=== PATIENT | male | born 1965 | race Caucasian/White ===

== ENCOUNTER 2017-08-02 06:34 | Day surgery (SDC) | payer BC, OTHER ==
[2017-08-02] MEDS ORDERED: PROPOFOL 200 MG/20 ML VIAL As Ordered (07:00)
[2017-08-02] MEDS: NS 1,000 ML IV (07:15)
[2017-08-02 07:23] LABS: BEDSIDE GLUCOSE 249 MG/DL (70-105)
== END 2017-08-02 08:28 | disposition home or self-care (01) ==
LOC: M OPP 06:34
DX: Z12.11 Encounter for screening for malignant neoplasm of colon (principal); D12.0 Benign neoplasm of cecum; K64.8 Other hemorrhoids; I10 Essential (primary) hypertension; E78.00 Pure hypercholesterolemia, unspecified; E10.9 Type 1 diabetes mellitus without complications; K21.9 Gastro-esophageal reflux disease without esophagitis; G62.9 Polyneuropathy, unspecified; G25.81 Restless legs syndrome; M19.90 Unspecified osteoarthritis, unspecified site; M54.9 Dorsalgia, unspecified; Z98.1 Arthrodesis status; Z87.891 Personal history of nicotine dependence; Z79.82 Long term (current) use of aspirin; Z79.899 Other long term (current) drug therapy
CPT/HCPCS: 45385

== ENCOUNTER 2018-06-23 17:37 | Emergency (ER) | payer BC, OTHER ==
[~2018-06-23] VITALS: Ht 177.8 cm; Wt 93.2 kg
[~2018-06-23 17:37] MED LIST: ASPI81TA85 PO; BENI20TA11 OR; BIOFREEZE; BYETTA PO; BYETTA SQ; BYSTOLIC PO; CARI350T PO; CITA40TA4 PO; CRES20TA OR; CYCL10TA PO; FLAG500T PO; INSULANT SC; LEVA750T PO; LEVAMIR SQ; LYRI150C OR; MAGN400T5 PO; NOVOINJ3; OMEP20TA7 OR; OXYC15TA66 PO; PREG50CA PO; ROPI1TAB PO; TRAM50TA2 OR; TRES1INJ SC; VICO5TAB PO; ZANA4CAP OR; ZANTTAB PO
[2018-06-23 17:38] VITALS: BP 161/94
[2018-06-23] MEDS ORDERED: VALI5TAB PO (18:16)
[2018-06-23] MEDS ORDERED: diazePAM 5 MG TAB PO ONE ×2 (18:30)
--- NOTE | 2018-06-24 08:36 | REP ---
Clinical: Trauma. Technique: Internal rotation, external rotation, and Y view of the left shoulder. Findings: Mild age-related degenerative changes at the acromioclavicular joint include subtle spurring and joint space narrowing. Glenohumeral joint appears intact and normal for age. No obvious acute fracture or dislocation. Subacromial space is normal. Surrounding soft tissues are unremarkable. Impression: Mild age-related degenerative changes. No acute fracture or dislocation appreciated. Electronically Signed by Juaquin Yepez MD 06/24/2018 08:27 A
== END 2018-06-23 18:27 | disposition home or self-care (01) ==
LOC: M ED 17:37
DX: M25.512 Pain in left shoulder (principal); E11.9 Type 2 diabetes mellitus without complications; I10 Essential (primary) hypertension; E78.5 Hyperlipidemia, unspecified; K21.9 Gastro-esophageal reflux disease without esophagitis; Z79.899 Other long term (current) drug therapy; Z79.4 Long term (current) use of insulin; Z79.82 Long term (current) use of aspirin; Z87.891 Personal history of nicotine dependence

== ENCOUNTER → 2018-11-07 | Outpatient (REF) | payer BC, OTHER ==
[~2018-11-07] MED LIST changes: +VALI5TAB PO; +ZANT150T40 PO; -ZANTTAB PO
[2018-11-08 08:42] LABS: LDL DIRECT 120 mg/dL (0-99)
== END ==
LOC: M LAB REF 12:31
PROVIDERS: ATTEND Nurse Practitioner Adult Health
DX: E78.00 Pure hypercholesterolemia, unspecified (principal)

== ENCOUNTER → 2019-06-03 | Outpatient (REF) | payer OTHER ==
[2019-06-05 08:07] LABS: LDL DIRECT 178 mg/dL (0-99)
== END ==
LOC: M LAB REF 12:22
PROVIDERS: ATTEND Nurse Practitioner Adult Health
DX: E11.65 Type 2 diabetes mellitus with hyperglycemia (principal)

== ENCOUNTER → 2019-09-30 | Outpatient (CLI) | payer OTHER ==
[~2019-09-30] MED LIST changes: +CYCL-707 PO; -CYCL10TA PO; -NOVOINJ3; +NOVOINJ3 SC; +RANI15TA PO; -ROPI1TAB PO; +ROPI1TAB3 PO
== END ==
LOC: M LABSMTC 09:44
PROVIDERS: ATTEND Anesthesiology
DX: Z01.818 Encounter for other preprocedural examination (principal); Z11.59 Encounter for screening for other viral diseases
CPT/HCPCS: C9803; U0003

== ENCOUNTER 2019-10-03 06:04 | Day surgery (SDC) | payer BC, OTHER ==
[~2019-10-03] VITALS: Ht 177.8 cm; Wt 102.1 kg
[~2019-10-03 06:04] MED LIST changes: +LR 1,000 ML IV SCH
[2019-10-03] MEDS ORDERED: BUPIVACAINE HCL 0.5% 30 ML VIAL As Ordered ONE (07:11)
[2019-10-03] MEDS ORDERED: LIDOCAINE 2% MDV 20ML VIAL As Ordered ONE (07:11)
[2019-10-03] MEDS ORDERED: dexameTHASONE 4 MG/ML 1ML VIAL (J1100 PER 1MG) As Ordered ONE (07:11)
[2019-10-03] MEDS ORDERED: NEOSPORIN GU IRRIG 20 ML VIAL As Ordered ONE (07:12)
[2019-10-03] MEDS ORDERED: BACITRACIN PWD 50,000 UNITS VIAL As Ordered ONE (07:12)
[2019-10-03] MEDS ORDERED: fentaNYL 100 MCG/2 ML INJECTION (J3010) As Ordered ONE ×2 (07:24→08:27)
[2019-10-03] MEDS ORDERED: MIDAZOLAM INJ 2MG/2ML VIAL (J2250 PER 1MG) As Ordered ONE (07:24)
[2019-10-03] MEDS ORDERED: LIDOCAINE 2% 100MG/5ML SDV (FOR ANES.) As Ordered ONE (07:24)
[2019-10-03] MEDS ORDERED: propofoL 200 MG/20 ML VIAL As Ordered ONE ×3 (07:24→08:48)
[2019-10-03] MEDS: ceFAZolin SOD 2 GM in IV 1 EA IV SCH (07:39)
[2019-10-03] MEDS ORDERED: KETOROLAC 60 MG/2 ML VIAL As Ordered ONE (08:13)
[2019-10-03] MEDS ORDERED: METOCLOPRAMIDE INJ 10MG/2ML VIAL (J2765 PER 1) As Ordered ONE (08:13)
[2019-10-03] MEDS ORDERED: ONDANSETRON 4MG/2ML VIAL As Ordered ONE (08:13)
[2019-10-03] MEDS ORDERED: LACRILUBE (AKWA TEARS) OPHTH OINT 3.5 GM As Ordered ONE (08:58)
[2019-10-03 09:43] VITALS: BP 133/85
--- NOTE | 2019-10-03 10:27 | REP ---
RIGHT FOOT, THREE VIEWS: Three portable views right foot performed. There has been placement of a metallic plate and multiple metallic screws fusing the 1st metatarsophalangeal joint, with significant narrowing at that joint. The osseous structures are well aligned. There is an overlying cast. Electronically Signed by Felix Velázquez MD 10/06/2019 09:44 P
--- NOTE | 2019-10-08 11:58 | RO ---
DATE OF SURGERY: 10/03/2019 PREOPERATIVE DIAGNOSIS: Hallux limitus deformity, right foot. POSTOPERATIVE DIAGNOSIS: Hallux limitus deformity, right foot. PROCEDURE PERFORMED: SURGEON: Mick Monzon DPM EXTENSION FORESTER: None. ANESTHESIA: Local monitored anesthesia care (MAC). IRRIGATION: Dilute bacitracin, neomycin, and polymyxin B solution. HARDWARE UTILIZED: Arthrex MTP standard plate with locking and nonlocking screws, cancellous screws 3.0 x 40, 20 and 22, and locking 3.0 screws 16 x 18 x 18 x 22. HEMOSTASIS: Ankle pneumatic tourniquet at 250 mmHg, 67 minutes. DESCRIPTION OF PROCEDURE: Description of operation: On 10/03/2019, this 54-year-old male was taken from his hospital room to the operating room, placed on the operating table in supine position. Following the induction of intravenous (IV) sedation, local and regional anesthesia, the right lower extremity was prepped and draped in the usual aseptic manner. Attention was directed to the patient's right foot, and there was noted to be a hallux limitus deformity, and the following procedure was performed: FUSION 1ST METATARSOPHALANGEAL JOINT WITH PLATE AND SCREW FIXATION, RIGHT FOOT: Attention directed to the patient's right foot. An incision measuring approximately [address] over the 1st metatarsophalangeal joint medial to the extensor tendon. The incision was deepened through subcutaneous tissues and all coursing venous tributaries were identified, underscored, clamped, cut, ligated, and electrocoagulated as necessary. A linear capsulotomy was performed in the same plane as original skin incision and the capsule and periosteal structures then dissected free in one continuous layer, dorsally, medially, and laterally, thus creating a capsule and periosteal type envelope. Attention was directed to the articular cartilage of the proximal phalanx where the entire dorsal and central aspect of the articular cartilage was eroded. The cartilage for the sesamoids was the only remaining cartilage intact. Proximal phalanx had approximately 80% of the cartilage eroded, therefore, a cheilectomy could not be performed and it was elected to perform a fusion of the 1st metatarsophalangeal joint. Utilizing the appropriate reamers, a cup and cone reamer system was utilized to remove the cartilage and recontour the head of the 1st metatarsal. Utilizing a power saw, the medial eminence and the dorsal sparing of the 1st metatarsal and proximal phalanx were removed. Utilizing a rongeur, the rest of the remodeling was performed. Utilizing a 2 mm drill bit, the remaining surfaces were fenestrated to promote fusion. The wound was then flushed with copious amounts of dilute bacitracin, neomycin, and polymyxin B solution. Utilizing the cannulated wire, the phalanx was placed in the appropriate position with some dorsiflexion and the hallux was placed parallel to the weightbearing surface parallel to the 2nd toe and a wire was driven through the phalanx into the proximal phalanx. C-arm was utilized to assure adequate position. Then, a 3.0 x 40 mm compression screw was utilized for interfragmental compression. An Arthrex MTP standard plate was then contoured to the dorsal surface of the 1st metatarsal and the appropriate screws were then placed in the appropriate holes, 3.0 x 16, 18, 18, 22 locking screws and nonlocking 3.0 x 20 and 22 screws. The wound was again flushed with copious amounts of dilute bacitracin, neomycin, and polymyxin B solution. C-arm images were obtained to verify appropriate position, and the wound was closed with #2.0 Monocryl for the capsular layer. Subcutaneous layer was coapted and maintained utilizing #4-0 Monocryl in a simple interrupted-type fashion. Skin incision was coapted and maintained utilizing #4-0 Prolene in a simple interrupted-type fashion. Sterile dressing was applied consisting of Adaptic, 4 x 4's , Quincy, and Kerlix. Ankle pneumatic tourniquet was rapidly deflated, and instantaneous capillary filling time was noted in digits 1-5 of the patient's right foot. A fiberglass boot cast was then applied to the patient's right foot. Patient, having apparently tolerated the surgical procedure well, was taken from the operating room (OR) to the recovery room, further monitoring by the anesthesia department. Postoperative instructions will be given upon discharge. SAMEER
== END 2019-10-03 10:00 | disposition home or self-care (01) ==
LOC: M SDC 06:04
PROVIDERS: ATTEND Podiatrist
DX: M20.11 Hallux valgus (acquired), right foot (principal); E78.00 Pure hypercholesterolemia, unspecified; E10.9 Type 1 diabetes mellitus without complications; I10 Essential (primary) hypertension; Z79.4 Long term (current) use of insulin; K21.9 Gastro-esophageal reflux disease without esophagitis; Z79.82 Long term (current) use of aspirin; Z79.899 Other long term (current) drug therapy; Z85.47 Personal history of malignant neoplasm of testis
CPT/HCPCS: 28750; 73630; 88300; C1713; J0690; J1100; J1885; J2250; J2405; J2765; J3010

== ENCOUNTER → 2019-12-10 | Outpatient (REF) | payer OTHER ==
[~2019-12-10] MED LIST changes: -ASPI81TA85 PO; +ASPI81TA86 PO; -LR 1,000 ML IV SCH
[2020-01-25 08:21] LABS: TOTAL 25(OH) VITAMIN D 12.1 NG/ML (30.0-100.0)
== END ==
LOC: M LAB REF 12:53
PROVIDERS: ATTEND Registered Nurse
DX: N52.9 Male erectile dysfunction, unspecified (principal); R53.83 Other fatigue

== ENCOUNTER → 2020-01-19 | Outpatient (REF) | payer OTHER | LOC: M LAB REF 16:19 | PROVIDERS: ATTEND Nurse Practitioner Adult Health | DX: R68.82 Decreased libido (principal) ==

== ENCOUNTER 2020-03-16 07:16 | Emergency (ER) | payer BC, OTHER ==
[2020-03-16] MEDS ORDERED: NS 1,000 ML IV ONE ×2 (08:00→10:15)
[2020-03-16 08:14] LABS: BASO # 0.1 10^3/uL (0.0-0.2); BASO % 0.9 % (0.0-1.0); EOS # 0.2 10^3/uL (0.0-0.5); EOS % 2.2 % (0.0-3.0); LYMPH # 2.1 10^3/uL (1.5-5.0); LYMPH % 21.7 % (24.0-44.0); MEAN CORPUSCULAR VOLUME 88.3 fl (80.0-96.0); MONO % 10.6 % (0.0-5.0); NEUTROPHILS # 6.2 10^3/uL (1.5-8.5); NEUTROPHILS % 63.7 % (36.0-66.0); PLATELET COUNT, AUTOMATED 429 10^3/uL (150-450); RED BLOOD COUNT 5.66 10^6/uL (4.30-6.10); WHITE BLOOD COUNT 9.8 10^3/uL (4.0-10.0)
[2020-03-16] MEDS ORDERED: OXYC1TAB23 PO (08:17)
[2020-03-16] MEDS ORDERED: DULO1CAP5 PO (08:17)
[2020-03-16] MEDS ORDERED: OZEM2INJ SQ (08:17)
[2020-03-16] MEDS ORDERED: FAMO40TA3 PO (08:17)
[2020-03-16 08:59] LABS: ALBUMIN 3.9 GM/DL (3.2-5.2); ALT/SGPT 20 U/L (12-78); AMYLASE 91 U/L (25-115); BILIRUBIN,DIRECT 0.2 MG/DL (0.0-0.2); BILIRUBIN,TOTAL 0.9 MG/DL (0.2-1.0); CK-MB VALUE MASS < 1.0 NG/ML (<3.6); CPK CREATINE PHOSPHOKINASE 40 U/L (39-308); NT-PRO BNP 24 PG/ML (<125); TOTAL PROTEIN 7.6 GM/DL (6.4-8.2); TROPONIN I < 0.02 NG/ML (< 0.10)
[2020-03-16 09:18] LABS: MAGNESIUM LEVEL 2.1 MG/DL (1.8-2.4)
[2020-03-16] MEDS ORDERED: PERCOCET 5MG/325MG TAB PO ONE (10:15)
[2020-03-16] MEDS ORDERED: ISOVUE-370 76% 100ML VIAL As Ordered ONE (10:18)
--- NOTE | 2020-03-16 10:43 | REP ---
INDICATION: intractable nausea/vomiting. COMPARISON: 12/20/2010 TECHNIQUE: Axial contrast-enhanced images from the lung bases to the pubic symphysis using 100 cc Isovue 370 intravenous contrast material. Coronal and sagittal reformations obtained. This CT examination was performed using the following dose reduction techniques: Automated exposure control, adjustment of mA and/or kv according to the patient's size, and the use of iterative reconstruction technique. FINDINGS: Liver, spleen, pancreas, gallbladder, bilateral adrenal glands and kidneys are normal. The enteric system including stomach, small, and large bowel appears normal. No evidence for obstruction or acute inflammatory process. Normal terminal ileum and appendix are identified in the right lower quadrant. Pelvis demonstrates normal bladder and age-appropriate prostate/seminal vesicles. Incidental small fat containing left inguinal hernia noted. No ascites. No free air. No intraperitoneal or retroperitoneal adenopathy. Abdominal aorta and vasculature appear normal. Musculoskeletal structures are demonstrate degenerative changes without acute osseous abnormality. IMPRESSION: No acute abdominopelvic pathology appreciated. No ascites. No free air. No adenopathy. <Electronically signed by Juaquin Yepez > 03/16/20 [id number]
[2020-03-16] MEDS ORDERED: ONDA4TAB6 PO (13:22)
[2020-03-16 13:28] VITALS: BP 156/88
--- NOTE | 2020-03-16 20:59 | ECGEPIP ---
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
== END 2020-03-16 13:35 | disposition home or self-care (01) ==
LOC: EDBD 07:16 → M ED 07:16
DX: R11.2 Nausea with vomiting, unspecified (principal); E11.9 Type 2 diabetes mellitus without complications; I10 Essential (primary) hypertension; F17.200 Nicotine dependence, unspecified, uncomplicated
CPT/HCPCS: 36415; 74177; 80047; 80076; 81001; 82150; 82550; 82553; 83605; 83690; 83735; 83880; 84484; 85025; 87486; 87581; 87633; 87798; 93005; 93041; 96360; 96361; 99285; Q9967

== ENCOUNTER → 2020-04-20 | Outpatient (REF) | payer OTHER ==
[~2020-04-20] MED LIST changes: +DULO1CAP5 PO; +FAMO40TA3 PO; +ONDA4TAB6 PO; +OXYC1TAB23 PO; +OZEM2INJ SQ
[2020-04-22 18:09] LABS: TESTOSTERONE FREE (DIRECT) 5.2 pg/mL (7.2-24.0)
== END ==
LOC: M LAB REF 16:21
PROVIDERS: ATTEND Nurse Practitioner Adult Health
DX: E29.1 Testicular hypofunction (principal)

== ENCOUNTER → 2020-07-26 | Outpatient (REF) | payer OTHER ==
[2020-07-28 16:10] LABS: TESTOSTERONE FREE (DIRECT) 4.3 pg/mL (7.2-24.0)
== END ==
LOC: M LAB REF 16:35
PROVIDERS: ATTEND Nurse Practitioner Adult Health
DX: R68.82 Decreased libido (principal)

== ENCOUNTER → 2020-08-02 | Outpatient (REF) | payer OTHER ==
[2020-08-02 13:32] LABS: FOLLICLE STIMULATING HORMONE 15.2 mIU/mL (1.4-18.1); LUTEINIZING HORMONE 2.9 mIU/mL (1.5-9.3)
== END ==
LOC: M LAB REF 12:06
PROVIDERS: ATTEND Nurse Practitioner Adult Health
DX: R68.82 Decreased libido (principal)

== ENCOUNTER → 2020-10-21 | Outpatient (REF) | payer OTHER ==
[2020-10-21 13:59] LABS: PROSTATIC SPECIFIC AG MONITOR 0.2 NG/ML (< 4.00)
== END ==
LOC: M LAB REF 12:11
PROVIDERS: ATTEND Nurse Practitioner Adult Health
DX: E29.1 Testicular hypofunction (principal)

== ENCOUNTER 2021-03-30 18:27 | Emergency (ER) | payer BC, OTHER ==
[~2021-03-30] VITALS: Ht 177.8 cm; Wt 100.0 kg
[2021-03-30] MEDS ORDERED: ONDANSETRON 4MG/2ML VIAL IV ONE (19:20)
[2021-03-30] MEDS: MORPHINE 4 MG/ML 1ML VIAL/SYRINGE (J2270) IV PRN ×2 (19:58→21:01)
[2021-03-30 21:01] VITALS: BP 198/97
--- OUTSIDE RECORDS SUMMARY | 2021-03-30 21:05 | CCD ---
Author Author [facility] Organization [facility] Address Unknown Phone Unavailable Care Team Providers Care Track Repair Person Name Role Phone JENNY, B PATIENCE NOTCH GRINDER Unavailable Unavailable JENNY, B PATIENCE NOTCH GRINDER Unavailable Unavailable JENNY, B PATIENCE NOTCH GRINDER Unavailable Unavailable JENNY, B PATIENCE NOTCH GRINDER Unavailable Unavailable JENNY, B PATIENCE NOTCH GRINDER Unavailable Unavailable JENNY, B PATIENCE NOTCH GRINDER Unavailable Unavailable JENNY, B PATIENCE NOTCH GRINDER Unavailable Unavailable JENNY, B PATIENCE NOTCH GRINDER Unavailable Unavailable JENNY, B PATIENCE NOTCH GRINDER Unavailable Unavailable JENNY, B PATIENCE NOTCH GRINDER Unavailable Unavailable JENNY, B PATIENCE NOTCH GRINDER Unavailable Unavailable JENNY, B PATIENCE NOTCH GRINDER Unavailable Unavailable JENNY, B PATIENCE NOTCH GRINDER Unavailable Unavailable JENNY, B PATIENCE NOTCH GRINDER Unavailable Unavailable JENNY, B PATIENCE NOTCH GRINDER Unavailable Unavailable JENNY, B PATIENCE NOTCH GRINDER Unavailable Unavailable JENNY, B PATIENCE NOTCH GRINDER Unavailable Unavailable JENNY, B PATIENCE NOTCH GRINDER Unavailable Unavailable JENNY, B PATIENCE NOTCH GRINDER Unavailable Unavailable JENNY, B PATIENCE NOTCH GRINDER Unavailable Unavailable JENNY, B PATIENCE NOTCH GRINDER Unavailable Unavailable JENNY, B PATIENCE NOTCH GRINDER Unavailable Unavailable JENNY, B PATIENCE NOTCH GRINDER Unavailable Unavailable JENNY, B PATIENCE NOTCH GRINDER Unavailable Unavailable JENNY, B PATIENCE NOTCH GRINDER Unavailable Unavailable JENNY, B PATIENCE NOTCH GRINDER Unavailable Unavailable JENNY, B PATIENCE NOTCH GRINDER Unavailable Unavailable JENNY, B PATIENCE NOTCH GRINDER Unavailable Unavailable JENNY, B PATIENCE NOTCH GRINDER Unavailable Unavailable JENNY, B PATIENCE NOTCH GRINDER Unavailable Unavailable JENNY, B PATIENCE NOTCH GRINDER Unavailable Unavailable JENNY, B PATIENCE NOTCH GRINDER Unavailable Unavailable JENNY, B PATIENCE NOTCH GRINDER Unavailable Unavailable JENNY, B PATIENCE NOTCH GRINDER Unavailable Unavailable JENNY, B PATIENCE NOTCH GRINDER Unavailable Unavailable JENNY, B PATIENCE NOTCH GRINDER Unavailable Unavailable JENNY, B PATIENCE NOTCH GRINDER Unavailable Unavailable JENNY, B PATIENCE NOTCH GRINDER Unavailable Unavailable JENNY, B PATIENCE NOTCH GRINDER Unavailable Unavailable JENNY, B PATIENCE NOTCH GRINDER Unavailable Unavailable JENNY, B PATIENCE NOTCH GRINDER Unavailable Unavailable JENNY, B PATIENCE NOTCH GRINDER Unavailable Unavailable JENNY, B PATIENCE NOTCH GRINDER Unavailable Unavailable JENNY, B PATIENCE NOTCH GRINDER Unavailable Unavailable JENNY, B PATIENCE NOTCH GRINDER Unavailable Unavailable JENNY, B PATIENCE NOTCH GRINDER Unavailable Unavailable JENNY, B PATIENCE NOTCH GRINDER Unavailable Unavailable JENNY, B PATIENCE NOTCH GRINDER Unavailable Unavailable JENNY, B PATIENCE NOTCH GRINDER Unavailable Unavailable JENNY, B PATIENCE NOTCH GRINDER Unavailable Unavailable JENNY, B PATIENCE NOTCH GRINDER Unavailable Unavailable JENNY, B PATIENCE NOTCH GRINDER Unavailable Unavailable JENNY, B PATIENCE NOTCH GRINDER Unavailable Unavailable JNENY, B PATIENCE NOTCH GRINDER Unavailable Unavailable JENNY, B PATIENCE NOTCH GRINDER Unavailable Unavailable JENNY, B PATIENCE NOTCH GRINDER Unavailable Unavailable JENNY, B PATIENCE NOTCH GRINDER Unavailable Unavailable JENNY, B PATIENCE NOTCH GRINDER Unavailable Unavailable JENNY, B PATIENCE NOTCH GRINDER Unavailable Unavailable JENNY, B PATIENCE NOTCH GRINDER Unavailable Unavailable JENNY, B PATIENCE NOTCH GRINDER Unavailable Unavailable JENNY, B PATIENCE NOTCH GRINDER Unavailable Unavailable Fish, B Julissa HINTON Unavailable Unavailable Fish, B Julissa HINTON Unavailable Unavailable Fish, B Julissa HINTON Unavailable Unavailable Fish, B Julissa HINTON Unavailable Unavailable Fish, B Julissa HINTON Unavailable Unavailable Fish, B Julissa HINTON Unavailable Unavailable Fish, B Julissa HINTON Unavailable Unavailable Fish, B Julissa HINTON Unavailable Unavailable Fish, B Julissa HINTON Unavailable Unavailable Fish, B Julissa HINTON Unavailable Unavailable Fish, B Julissa HINTON Unavailable Unavailable Fish, B Julissa HINTON Unavailable Unavailable Fish, B Jluissa HINTON Unavailable Unavailable Fish, B Julissa HINTON Unavailable Unavailable Fish, B Julissa HINTON Unavailable Unavailable Fish, B Julissa HINTON Unavailable Unavailable Fish, B Julissa HINTON Unavailable Unavailable Fish, B Julissa HINTON Unavailable Unavailable Fish, B Julissa HINTON Unavailable Unavailable Fish, B Julissa HINTON Unavailable Unavailable Fish, B Julissa HINTON Unavailable Unavailable Fish, B Julissa HINTON Unavailable Unavailable Fish, B Julissa HINTON Unavailable Unavailable Fish, B Julissa HINTON Unavailable Unavailable Fish, B Julissa HINTON Unavailable Unavailable Fish, B Julissa HINTON Unavailable Unavailable Fish, Mike Costa MD Unavailable Unavailable Fish, Mike Costa MD Unavailable Unavailable Fish, B Julissa HINTON Unavailable Unavailable Fish, B Julissa HINTON Unavailable Unavailable Fish, B Julissa HINTON Unavailable Unavailable Fish, Mike Costa MD Unavailable Unavailable Fish, Mike Costa MD Unavailable Unavailable Fish, Mike Costa MD Unavailable Unavailable Fish, B Julissa HINTON Unavailable Unavailable Fish, B Julissa HINTON Unavailable Unavailable Fish, B Julissa HINTON Unavailable Unavailable Fish, B Julissa HINTON Unavailable Unavailable Fish, B Julissa HINTON Unavailable Unavailable Fish, B Julissa HINTON Unavailable Unavailable Fish, B Julissa HINTON Unavailable Unavailable Fish, B Julissa HINTON Unavailable Unavailable Fish, B Julissa HINTON Unavailable Unavailable Fish, B Julissa HINTON Unavailable Unavailable Fish, B Julissa HINTON Unavailable Unavailable Fish, B Julissa HINTON Unavailable Unavailable Fish, B Julissa HINTON Unavailable Unavailable Fish, B Julissa HINTON Unavailable Unavailable Fish, B Julissa HINTON Unavailable Unavailable Fish, B Julissa HINTON Unavailable Unavailable Fish, B Julissa HINTON Unavailable Unavailable Fish, B Julissa HINTON Unavailable Unavailable Fish, B Julissa HINTON Unavailable Unavailable Fish, B Julissa HINTON Unavailable Unavailable Fish, B Julissa HINTON Unavailable Unavailable Fish, B Julissa HINTON Unavailable Unavailable Fish, B Julissa HINTON Unavailable Unavailable Fish, B Julissa HINTON Unavailable Unavailable Fish, B Julissa HINTON Unavailable Unavailable Fish, B Julissa HINTON Unavailable Unavailable Fish, B Julissa HINTON Unavailable Unavailable Fish, B Julissa HINTON Unavailable Unavailable Fish, B Julissa HINTON Unavailable Unavailable Fish, B Julissa HINTON Unavailable Unavailable Fish, B Julissa HINTON Unavailable Unavailable AISSATOU, J Edie ANP Unavailable Unavailable AISSATOU, J Edie ANP Unavailable Unavailable AISSATOU, J Edie ANP Unavailable Unavailable AISSATOU, J Edie ANP Unavailable Unavailable AISSATOU, J Edie ANP Unavailable Unavailable AISSATOU, J Edie ANP Unavailable Unavailable AISSATOU, J Edie ANP Unavailable Unavailable AISSATOU, J Edie ANP Unavailable Unavailable AISSATOU, J Edie ANP Unavailable Unavailable AISSATOU, J Edie ANP Unavailable Unavailable AISSATOU, J Edie ANP Unavailable Unavailable AISSATOU, J Edie ANP Unavailable Unavailable AISSATOU, J Edie ANP Unavailable Unavailable AISSATOU, J Edie ANP Unavailable Unavailable AISSATOU, J Edie ANP Unavailable Unavailable AISSATOU, J Edie ANP Unavailable Unavailable AISSATOU, J Edie ANP Unavailable Unavailable AISSATOU, J Edie ANP Unavailable Unavailable AISSATOU, J Edie ANP Unavailable Unavailable AISSATOU, J Edie ANP Unavailable Unavailable AISSATOU, J Edie ANP Unavailable Unavailable AISSATOU, J Edie ANP Unavailable Unavailable AISSATOU, J Edie ANP Unavailable Unavailable AISSATOU, J Edie ANP Unavailable Unavailable AISSATOU, J Edie ANP Unavailable Unavailable AISSATOU, J Edie ANP Unavailable Unavailable AISSATOU, J Edie ANP Unavailable Unavailable AISSATOU, J Edie ANP Unavailable Unavailable AISSATOU, J Edie ANP Unavailable Unavailable AISSATOU, J Edie ANP Unavailable Unavailable AISSATOU, J Edie ANP Unavailable Unavailable AISSATOU, J Edie ANP Unavailable Unavailable AISSATOU, J Edie ANP Unavailable Unavailable AISSATOU, J Edie ANP Unavailable Unavailable AISSATOU, J Edie ANP Unavailable Unavailable AISSATOU, J Edie ANP Unavailable Unavailable AISSATOU, J Edie ANP Unavailable Unavailable AISSATOU, J Edie ANP Unavailable Unavailable AISSATOU, J Edie ANP Unavailable Unavailable AISSATOU, J Edie ANP Unavailable Unavailable AISSATOU, J Edie ANP Unavailable Unavailable AISSATOU, J Edie ANP Unavailable Unavailable AISSATOU, J Edie ANP Unavailable Unavailable AISSATOU, J Edie ANP Unavailable Unavailable AISSATOU, J Edie ANP Unavailable Unavailable AISSATOU, J Edie ANP Unavailable Unavailable AISSATOU, J Edie ANP Unavailable Unavailable AISSATOU, J Edie ANP Unavailable Unavailable AISSATOU, J Edie ANP Unavailable Unavailable AISSATOU, J Edie ANP Unavailable Unavailable AISSATOU, J Edie ANP Unavailable Unavailable AISSATOU, J Edie ANP Unavailable Unavailable AISSATOU, J Edie ANP Unavailable Unavailable AISSATOU, J Edie ANP Unavailable Unavailable AISSATOU, J Edie ANP Unavailable Unavailable AISSATOU, J Edie ANP Unavailable Unavailable AISSATOU, J Edie ANP Unavailable Unavailable AISSATOU, J Edie ANP Unavailable Unavailable AISSATOU, J Edie ANP Unavailable Unavailable AISSATOU, J Edie ANP Unavailable Unavailable AISSATOU, J Edie ANP Unavailable Unavailable AISSATOU, J Edie ANP Unavailable Unavailable AISSATOU, J Edie ANP Unavailable Unavailable AISSATOU, J Edie ANP Unavailable Unavailable Re-disclosure Warning The records that you are about to access may contain information from federally-assisted alcohol or drug abuse programs. If such information is present, then the following federally mandated warning applies: This information has been disclosed to you from records protected by federal confidentiality rules (42 CFR part 2). The federal rules prohibit you from making any further disclosure of this information unless further disclosure is expressly permitted by the written consent of the person to whom it pertains or as otherwise permitted by 42 CFR part 2. A general authorization for the release of medical or other information is NOT sufficient for this purpose. The Federal rules restrict any use of the information to criminally investigate or prosecute any alcohol or drug abuse patient.The records that you are about to access may contain highly sensitive health information, the redisclosure of which is protected by Article 27-F of the [facility] Public Health law. If you continue you may have access to information: Regarding HIV / AIDS; Provided by facilities licensed or operated by the [facility] Office of Mental Health; or Provided by the [facility] Office for People With Developmental Disabilities. If such information is present, then the following [facility] mandated warning applies: This information has been disclosed to you from confidential records which are protected by state law. State law prohibits you from making any further disclosure of this information without the specific written consent of the person to whom it pertains, or as otherwise permitted by law. Any unauthorized further disclosure in violation of state law may result in a fine or fpc sentence or both. A general authorization for the release of medical or other information is NOT sufficient authorization for further disc losure. Family History Family Member Name Family Member Gender Family Member Status Date o f Status Description Data Source(s) Unknown Unknown Problem [facility] ([facility]) Unknown Female Problem [facility] ([facility]) Encounters Encounter Providers Location Date Indications Data Source(s ) Outpatient Attender: PATIENCE ALVARADO NP Physical Therapy 10:45:00 AM EDT [facility] ([facility]) Outpatient Attender: Edie Wynn 10:00:00 AM EDT MED[facility] ([facility] ) Outpatient Attender: PATIENCE ALVARADO NP Physical Therapy 02:15:00 PM EDT [facility] ([facility]) Outpatient Attender: Julissa Doan MD Physical Therapy 10/19 02:00:00 PM EDT [facility] ([facility]) OFFICE OUTPATIENT NEW 60 MINUTES Attender: Julissa Doan MD Physi antoni Therapy 09/13/2020 09:15:00 AM EDT [facility] ([facility]) Outpatient Attender: Edie Wynn 11:00:00 AM EDT [facility] ([facility] ) [place] [address] [address] 07/16/2020 12:00:00 AM EDT eCW1 ([facility]) Outpatient Attender: Edie SANTOS Olga Easleylorelei 01:15:00 PM EST MED[facility] ([facility] ) [place] [address] [address] 03/10/2020 12:00:00 AM EST eCW1 ([facility]) [place] [address] [address] 03/01/2020 12:00:00 AM EST eCW1 ([facility]) [place] [address] [address] 02/11/2020 12:00:00 AM EDT eCW1 ([facility]) Immunizations Vaccine Date Status Description Data Source(s) COVID-19 VACCINE [facility] 10/16/2020 12:00:00 AM EDT completed [facility] Vaccine Series Complete: YESThis Data wa s Submitted to [facility] Via [facility]. COVID-19 VACC, MRNA(PFIZER)/PF 10/16/2020 12:00:00 AM EDT completed [facility] COVID-19 VACC, MRNA(PFIZER)/PF 09/25/2020 12:00:00 AM EDT completed [facility] COVID-19 VACCINE Pfizer 09/25/2020 12:00:00 AM EDT completed [facility] Vaccine Series Complete: NOThis Data was Submitted to [facility] Via [employer]. Medications Medication Brand Name Start Date Product Form Dose Route Admi nistrative Instructions Pharmacy Instructions Status Indications Reaction Description Data Source(s) 20 mg 03/28/2021 12:00:00 AM EST tablet,oral only,ext.re l.12 hr 60 TAKE ONE TABLET BY MOUTH TWICE A DAY MAXIMUM DAILY DOSE = 2 TABLETS TAKE ONE TABLET BY MOUTH TWICE A DAY MAXIMUM DAILY DOSE = 2 TABLETS SOLD: 03/28/2021 [facility] 1,250 mcg (50,000 unit) 03/28/2021 12:00:00 AM EST capsule 12 TAKE 1 CAPSULE BY MOUTH ONCE A WEEK TAKE 1 CAPSULE BY MOUTH ONCE A WEEK SOLD: 03/28/2021 [facility] 5-325 mg 03/28/2021 12:00:00 AM EST tablet 60 TAKE ONE TABLET BY MOUTH EVERY 12 HOURS NEEDED MAXIMUM DAILY DOSE = 2 TABLETS TAKE ONE TABLET BY MOUTH EVERY 12 HOURS NEEDED MAXIMUM DAILY DOSE = 2 TABLETS SOLD: 03/28/2021 [facility] 5-325 mg 02/22/2021 12:00:00 AM EDT tablet 60 TAKE ONE TABLET BY MOUTH EVERY 12 HOURS NEEDED MAXIMUM DAILY DOSE = 2 TABLETS TAKE ONE TABLET BY MOUTH EVERY 12 HOURS NEEDED MAXIMUM DAILY DOSE = 2 TABLETS SOLD: 02/23/2021 [facility] 20 mg 02/22/2021 12:00:00 AM EDT tablet,oral only,ext.re l.12 hr 60 TAKE ONE TABLET BY MOUTH TWICE A DAY MAXIMUM DAILY DOSE = 2 TABLETS TAKE ONE TABLET BY MOUTH TWICE A DAY MAXIMUM DAILY DOSE = 2 TABLETS SOLD: 02/23/2021 [facility] 100 unit/mL (3 mL) 02/05/2021 12:00:00 AM EDT insulin pen 15 INJECT 14 UNITS SUBCUTANEOUSLY PRIOR TO EACH MEAL DIRECTED INJECT 14 UNITS SUBCUTANEOUSLY PRIOR TO EACH MEAL DIRECTED SOLD: 02/08/2021 [facility] 100 unit/mL (3 mL) 02/05/2021 12:00:00 AM EDT insulin pen 15 INJECT 14 UNITS SUBCUTANEOUSLY PRIOR TO EACH MEAL DIRECTED INJECT 14 UNITS SUBCUTANEOUSLY PRIOR TO EACH MEAL DIRECTED SOLD: 03/11/2021 [facility] 24 HR Metformin hydrochloride 500 MG Extended Release Oral T ablet METFORMIN HCL 01/25/2021 12:00:00 AM EDT tablet extended release 24 hr 120 TAKE TWO TABLETS BY MOUTH TWICE A DAY TAKE TWO TABLETS BY MOUTH TWICE A DAY SOLD: 03/03/2021 [facility] 500 mg 01/25/2021 12:00:00 AM EDT tablet extended release 24 hr 120 TAKE TWO TABLETS BY MOUTH TWICE A DAY TAKE TWO TABLETS BY MOUTH TWICE A DAY SOLD: 01/25/2021 [facility] 20 mg 01/24/2021 12:00:00 AM EDT tablet,oral only,ext.re l.12 hr 60 TAKE ONE TABLET BY MOUTH TWICE A DAY MAXIMUM DAILY DOSE = 2 TABLETS TAKE ONE TABLET BY MOUTH TWICE A DAY MAXIMUM DAILY DOSE = 2 TABLETS SOLD: 01/25/2021 [facility] 5-325 mg 01/24/2021 12:00:00 AM EDT tablet 60 TAKE ONE TABLET BY MOUTH EVERY 12 HOURS NEEDED MAXIMUM DAILY DOSE = 2 TABLETS TAKE ONE TABLET BY MOUTH EVERY 12 HOURS NEEDED MAXIMUM DAILY DOSE = 2 TABLETS SOLD: 01/25/2021 [facility] 150 mg 01/14/2021 12:00:00 AM EDT capsule 120 TAKE TWO CAPSULES BY MOUTH TWICE A DAY MAXIMUM DAILY DOSE = 4 TAKE TWO CAPSULES BY MOUTH TWICE A DAY MAXIMUM DAILY DOSE = 4 SOLD: 01/14/2021 [facility] 60 mg 01/13/2021 12:00:00 AM EDT capsule,delayed release (DR/EC) 90 TAKE ONE CAPSULE BY MOUTH EVERY DAY FOR 7 DAYS,THEN 2 ONCE DAILY TAKE ONE CAPSULE BY MOUTH EVERY DAY FOR 7 DAYS,THEN 2 ONCE DAILY SOLD: 01/14/2021 [facility] 5-325 mg 12/24/2020 12:00:00 AM EDT tablet 60 TAKE 1 TABLET BY MOUTH EVERY 12 HOURS NEEDED MAXIMUM DAILY DOSE =2 TAKE 1 TABLET BY MOUTH EVERY 12 HOURS NEEDED MAXIMUM DAILY DOSE =2 SOLD: 12/24/2020 [facility] 20 mg 12/24/2020 12:00:00 AM EDT tablet,oral only,ext.re l.12 hr 60 TAKE ONE TABLET BY MOUTH TWICE A DAY MAXIMUM DAILY DOSE = TWO TAKE ONE TABLET BY MOUTH TWICE A DAY MAXIMUM DAILY DOSE = TWO SOLD: 12/24/2020 [facility] 150 mg 12/07/2020 12:00:00 AM EDT capsule 120 TAKE TWO CAPSULES BY MOUTH TWO TIMES A DAY MAXIMUM DAILY DOSE = 4 TAKE TWO CAPSULES BY MOUTH TWO TIMES A D AY MAXIMUM DAILY DOSE = 4 SOLD: 02/13/2021 [facility] 200 unit/mL (3 mL) 12/07/2020 12:00:00 AM EDT insulin pen 9 INJECT 40 UNITS UNDER THE SKIN ONCE DAILY AT BEDTIME INJECT 40 UNITS UNDER THE SKIN ONCE JUDY Y AT BEDTIME SOLD: 12/08/2020 [facility] 150 mg 12/07/2020 12:00:00 AM EDT capsule 120 TAKE TWO CAPSULES BY MOUTH TWO TIMES A DAY MAXIMUM DAILY DOSE = 4 TAKE TWO CAPSULES BY MOUTH TWO TIMES A D AY MAXIMUM DAILY DOSE = 4 SOLD: 12/08/2020 [facility] 150 mg 12/07/2020 12:00:00 AM EDT capsule 120 TAKE TWO CAPSULES BY MOUTH TWO TIMES A DAY MAXIMUM DAILY DOSE = 4 TAKE TWO CAPSULES BY MOUTH TWO TIMES A D AY MAXIMUM DAILY DOSE = 4 SOLD: 03/17/2021 [facility] 5-325 mg 11/24/2020 12:00:00 AM EDT tablet 60 TAKE ONE TABLET BY MOUTH EVERY 12 HOURS NEEDED MAXIMUM DAILY DOSE = 2 TABLETS TAKE ONE TABLET BY MOUTH EVERY 12 HOURS NEEDED MAXIMUM DAILY DOSE = 2 TABLETS SOLD: 11/25/2020 [facility] 20 mg 11/22/2020 12:00:00 AM EDT tablet,oral only,ext.re l.12 hr 60 TAKE ONE TABLET BY MOUTH TWICE A DAY MAXIMUM DAILY DOSE = TWO TABLETS TAKE ONE TABLET BY MOUTH TWICE A DAY MAXIMUM DAILY DOSE = TWO TABLETS SOLD: 11/25/2020 [facility] Famotidine 40 MG Oral Tablet FAMOTIDINE 11/03/2020 12:00:00 AM EDT tab let 30 TAKE ONE TABLET BY MOUTH EVERY DAY TAKE ONE TABLET BY MOUTH EVERY DAY SOLD: 01/25/2021 [facility] Famotidine 40 MG Oral Tablet FAMOTIDINE 11/03/2020 12:00:00 AM EDT tab let 30 TAKE ONE TABLET BY MOUTH EVERY DAY TAKE ONE TABLET BY MOUTH EVERY DAY SOLD: 11/06/2020 [facility] Famotidine 40 MG Oral Tablet FAMOTIDINE 11/03/2020 12:00:00 AM EDT tab let 30 TAKE ONE TABLET BY MOUTH EVERY DAY TAKE ONE TABLET BY MOUTH EVERY DAY SOLD: 12/24/2020 [facility] Famotidine 40 MG Oral Tablet FAMOTIDINE 11/03/2020 12:00:00 AM EDT tab let 30 TAKE ONE TABLET BY MOUTH EVERY DAY TAKE ONE TABLET BY MOUTH EVERY DAY SOLD: 03/03/2021 [facility] Famotidine 40 MG Oral Tablet FAMOTIDINE 11/03/2020 12:00:00 AM EDT tab let 30 TAKE ONE TABLET BY MOUTH EVERY DAY TAKE ONE TABLET BY MOUTH EVERY DAY SOLD: 11/12/2020 [facility] 12 HR Oxycodone Hydrochloride 20 MG Extended Release O ral Tablet [Oxycontin] Oxycontin 10/26/2020 12:00:00 AM EDT active MED[facility] ([facility]) 24 HR Metformin hydrochloride 500 MG Extended Release Oral T ablet METFORMIN HCL 10/21/2020 12:00:00 AM EDT tablet extended release 24 hr 120 TAKE TWO TABLETS BY MOUTH TWICE A DAY TAKE TWO TABLETS BY MOUTH TWICE A DAY SOLD: 10/26/2020 [facility] 15 mg 10/21/2020 12:00:00 AM EDT tablet,oral only,ext.re l.12 hr 60 TAKE ONE TABLET BY MOUTH TWICE A DAY MAXIMUM DAILY DOSE = TWO TABLETS TAKE ONE TABLET BY MOUTH TWICE A DAY MAXIMUM DAILY DOSE = TWO TABLETS SOLD: 10/26/2020 [facility] 24 HR Metformin hydrochloride 500 MG Extended Release Oral T ablet METFORMIN HCL 10/21/2020 12:00:00 AM EDT tablet extended release 24 hr 120 TAKE TWO TABLETS BY MOUTH TWICE A DAY TAKE TWO TABLETS BY MOUTH TWICE A DAY SOLD: 12/24/2020 [facility] 5-325 mg 10/21/2020 12:00:00 AM EDT tablet 90 TAKE ONE TABLET BY MOUTH EVERY 8 HOURS NEEDED MAXIMUM DAILY DOSE = 3 TAKE ONE TABLET BY MOUTH EVERY 8 HOURS NEEDED MAXIMUM DAILY DOSE = 3 SOLD: 10/26/2020 [facility] 24 HR Metformin hydrochloride 500 MG Extended Release Oral Tablet Metformin HCL ER 10/20/2020 12:00:00 AM EDT ORAL active [facility] ([facility] ) Covid-19 vaccine, Unspecified 10/16/2020 12:00:00 AM EDT completed [facility]) Medication administered onsite Cyclobenzaprine hydrochloride 10 MG Oral Tablet CYCLOBENZAPR INE HCL 10/15/2020 12:00:00 AM EDT tablet 60 TAKE ONE TABLET BY MOUTH THREE TIMES A DAY NEEDED TAKE ONE TABLET BY MOUTH THREE TIMES A DAY NEEDED SOLD: 10/16/2020 [facility] Cyclobenzaprine hydrochloride 10 MG Oral Tablet CYCLOBENZAPR INE HCL 10/15/2020 12:00:00 AM EDT tablet 60 TAKE ONE TABLET BY MOUTH THREE TIMES A DAY NEEDED TAKE ONE TABLET BY MOUTH THREE TIMES A DAY NEEDED SOLD: 03/03/2021 [facility] Cyclobenzaprine hydrochloride 10 MG Oral Tablet CYCLOBENZAPR INE HCL 10/15/2020 12:00:00 AM EDT tablet 60 TAKE ONE TABLET BY MOUTH THREE TIMES A DAY NEEDED TAKE ONE TABLET BY MOUTH THREE TIMES A DAY NEEDED SOLD: 01/14/2021 [facility] Cyclobenzaprine hydrochloride 10 MG Oral Tablet CYCLOBENZAPR INE HCL 10/15/2020 12:00:00 AM EDT tablet 60 TAKE ONE TABLET BY MOUTH THREE TIMES A DAY NEEDED TAKE ONE TABLET BY MOUTH THREE TIMES A DAY NEEDED SOLD: 12/08/2020 [facility] Acetaminophen 325 MG / Oxycodone Hydrochloride 5 MG Or al Tablet 5-325 mg OXYCODONE HCL/ACETAMINOPHEN 09/23/2020 12:00:00 AM EDT tablet 90 TAKE ONE TABLET BY MOUTH EVERY 8 HOURS NEEDED MAXIMUM DAILY DOSE = THREE TABLETS TAKE ONE TABLET BY MOUTH EVERY 8 HOURS NEEDED MAXIMUM DAILY DOSE = THREE TABLETS SOLD: 09/25/2020 [facility] 15 mg 09/22/2020 12:00:00 AM EDT tablet,oral only,ext.re l.12 hr 60 TAKE ONE TABLET BY MOUTH TWICE A DAY MAXIMUM DAILY DOSE = TWO TABLETS TAKE ONE TABLET BY MOUTH TWICE A DAY MAXIMUM DAILY DOSE = TWO TABLETS SOLD: 09/25/2020 [facility] Covid-19 vaccine, Unspecified 09/20/2020 12:00:00 AM EDT completed [facility] ([facility]) Medication administered onsite FLASH GLUCOSE SCANNING READER 09/14/2020 12:00:00 AM EDT misc 1 ONCE DAILY ONCE DAILY SOLD: 09/16/2020 [facility] Freestyle [place] 2/[place]/Flash Glucose Monitoring System 09/13/2020 12:00:00 AM EDT active MED[facility] ([facility]) Freestyle Aguilar 2/Sensor/Flash Glucose Monitoring System 09/13/2020 12:00:00 AM EDT active [facility] ([facility]) FLASH GLUCOSE SENSOR 09/13/2020 12:00:00 AM EDT kit 2 APPLY 1 EVERY 14 DAYS APPLY 1 EVERY 14 DAYS SOLD: 11/15/2020 [facility] FLASH GLUCOSE SENSOR 09/13/2020 12:00:00 AM EDT kit 2 APPLY 1 EVERY 14 DAYS APPLY 1 EVERY 14 DAYS SOLD: 12/08/2020 [facility] FLASH GLUCOSE SENSOR 09/13/2020 12:00:00 AM EDT kit 2 APPLY 1 EVERY 14 DAYS APPLY 1 EVERY 14 DAYS SOLD: 01/14/2021 [facility] FLASH GLUCOSE SENSOR 09/13/2020 12:00:00 AM EDT kit 2 APPLY 1 EVERY 14 DAYS APPLY 1 EVERY 14 DAYS SOLD: 09/16/2020 [facility] FLASH GLUCOSE SENSOR 09/13/2020 12:00:00 AM EDT kit 2 APPLY 1 EVERY 14 DAYS APPLY 1 EVERY 14 DAYS SOLD: 02/19/2021 [facility] 150 mg 08/30/2020 12:00:00 AM EDT capsule 120 TAKE TWO CAPSULES BY MOUTH TWICE A DAY MAXIMUM DAILY DOSE = 4 TAKE TWO CAPSULES BY MOUTH TWICE A DAY MAXIMUM DAILY DOSE = 4 SOLD: 09/03/2020 [facility] 5-325 mg 08/23/2020 12:00:00 AM EDT tablet 90 TAKE ONE TABLET BY MOUTH EVERY 8 HOURS NEEDED MAXIMUM DAILY DOSE = 3 TAKE ONE TABLET BY MOUTH EVERY 8 HOURS NEEDED MAXIMUM DAILY DOSE = 3 SOLD: 08/25/2020 [facility] 15 mg 08/23/2020 12:00:00 AM EDT tablet,oral only,ext.re l.12 hr 60 TAKE ONE TABLET BY MOUTH TWICE A DAY MAXIMUM DAILY DOSE = 2 TAKE ONE TABLET BY MOUTH TWICE A DAY MAXIMUM DAILY DOSE = 2 SOLD: 08/25/2020 [facility] 150 mg 08/07/2020 12:00:00 AM EDT capsule 120 TAKE TWO CAPSULES BY MOUTH TWICE A DAY MAXIMUM DAILY DOSE = 4 TAKE TWO CAPSULES BY MOUTH TWICE A DAY MAXIMUM DAILY DOSE = 4 SOLD: 08/21/2020 [facility] 3 ML Insulin, Aspart, Human 100 UNT/ML Pen Injector [NovoLog ] Novolog Flexpen 07/26/2020 12:00:00 AM EDT SUBCUTANEOUS active [facility] ([facility]) duloxetine 60 MG Delayed Release Oral Capsule Duloxetine HCL 07/26/2020 12:00:00 AM EDT active [facility] ([facility] 60 mg 07/26/2020 12:00:00 AM EDT capsule,delayed release (DR/EC) 90 TAKE ONE CAPSULE BY MOUTH EVERY DAY FOR 7 DAYS, THEN TAKE 2 ONCE A DAY TAKE ONE CAPSULE BY MOUTH EVERY DAY FOR 7 DAYS, THEN TAKE 2 ONCE A DAY SOLD: 10/16/2020 [facility] 60 mg 07/26/2020 12:00:00 AM EDT capsule,delayed release (DR/EC) 90 TAKE ONE CAPSULE BY MOUTH EVERY DAY FOR 7 DAYS, THEN TAKE 2 ONCE A DAY TAKE ONE CAPSULE BY MOUTH EVERY DAY FOR 7 DAYS, THEN TAKE 2 ONCE A DAY SOLD: 07/27/2020 [facility] 15 mg 07/21/2020 12:00:00 AM EDT tablet,oral only,ext.re l.12 hr 60 TAKE 1 TABLET BY MOUTH TWO TIMES A DAY MAXIMUM DAILY DOSE = 2 TABLETS TAKE 1 TABLET BY MOUTH TWO TIMES A DAY MAXIMUM DAILY DOSE = 2 TABLETS SOLD: 07/24/2020 [facility] 5-325 mg 07/21/2020 12:00:00 AM EDT tablet 90 TAKE ONE TABLET BY MOUTH EVERY 8 HOURS NEEDED MAXIMUM DAILY DOSE = 3 TABLETS TAKE ONE TABLET BY MOUTH EVERY 8 HOURS NEEDED MAXIMUM DAILY DOSE = 3 TABLETS SOLD: 07/24/2020 [facility] FLASH GLUCOSE SENSOR 06/23/2020 12:00:00 AM EST kit 2 APPLY EVERY 14 DAYS APPLY EVERY 14 DAYS SOLD: 09/03/2020 [facility] FLASH GLUCOSE SENSOR 06/23/2020 12:00:00 AM EST kit 2 APPLY EVERY 14 DAYS APPLY EVERY 14 DAYS SOLD: 06/25/2020 [facility] 15 mg 06/22/2020 12:00:00 AM EST tablet,oral only,ext.re l.12 hr 60 TAKE ONE TABLET BY MOUTH TWICE A DAY MAXIMUM DAILY DOSE = 2 TABLETS TAKE ONE TABLET BY MOUTH TWICE A DAY MAXIMUM DAILY DOSE = 2 TABLETS SOLD: 06/25/2020 [facility] Acetaminophen 325 MG / Oxycodone Hydrochloride 5 MG Or al Tablet 5-325 mg OXYCODONE HCL/ACETAMINOPHEN 06/22/2020 12:00:00 AM EST tablet 90 TAKE ONE TABLET BY MOUTH EVERY 8 HOURS NEEDED MAXIMUM DAILY DOSE = 3 TABLETS TAKE ONE TABLET BY MOUTH EVERY 8 HOURS NEEDED MAXIMUM DAILY DOSE = 3 TABLETS SOLD: 06/25/2020 [facility] 150 mg 06/14/2020 12:00:00 AM EST capsule 120 TAKE TWO CAPSULES BY MOUTH TWICE A DAY MAXIMUM DAILY DOSE = 4 TAKE TWO CAPSULES BY MOUTH TWICE A DAY MAXIMUM DAILY DOSE = 4 SOLD: 06/20/2020 [facility] 15 mg 05/26/2020 12:00:00 AM EST tablet,oral only,ext.re l.12 hr 60 TAKE ONE TABLET BY MOUTH TWICE A DAY MAXIMUM DAILY DOSE = 2 TABLETS TAKE ONE TABLET BY MOUTH TWICE A DAY MAXIMUM DAILY DOSE = 2 TABLETS SOLD: 05/27/2020 [facility] 5-325 mg 05/26/2020 12:00:00 AM EST tablet 90 TAKE ONE TABLET BY MOUTH EVERY 8 HOURS NEEDED MAXIMUM DAILY DOSE = 3 TABLETS TAKE ONE TABLET BY MOUTH EVERY 8 HOURS NEEDED MAXIMUM DAILY DOSE = 3 TABLETS SOLD: 05/27/2020 [facility] 1 gram 05/24/2020 12:00:00 AM EST capsule 120 TAKE TWO CAPSULES BY MOUTH TWICE A DAY WITH BREAKFAST AND DINNER TAKE TWO CAPSULES BY MOUTH TWICE A DAY WITH BREAKFAST AND DINNER SOLD: 05/27/2020 [facility] atorvastatin 80 MG Oral Tablet ATORVASTATIN CALCIUM 05/09/2020 1 2:00:00 AM EST tablet 90 TAKE ONE TABLET BY MOUTH EVERY D AY TAKE ONE TABLET BY MOUTH EVERY DAY SOLD: 05/22/2020 [facility] 80 mg 05/09/2020 12:00:00 AM EST tablet 80 TAKE ONE TABLET BY MOUTH EVERY DAY TAKE ONE TABLET BY MOUTH EVERY DAY SOLD: 10/26/2020 [facility] 32 gauge x 1/5" 04/29/2020 12:00:00 AM EST needle 100 ONE MISCELLANEOUS EVERY DAY ONE MISCELLANEOUS EVERY DAY SOLD: 05/01/2020 [facility] Acetaminophen 325 MG / Oxycodone Hydrochloride 5 MG Or al Tablet 5-325 mg OXYCODONE HCL/ACETAMINOPHEN 04/28/2020 12:00:00 AM EST tablet 90 TAKE ONE TABLET BY MOUTH EVERY 8 HOURS NEEDED MAXIMUM DAILY DOSE = THREE TABLETS TAKE ONE TABLET BY MOUTH EVERY 8 HOURS NEEDED MAXIMUM DAILY DOSE = THREE TABLETS SOLD: 04/28/2020 [facility] 15 mg 04/28/2020 12:00:00 AM EST tablet,oral only,ext.re l.12 hr 60 TAKE ONE TABLET BY MOUTH TWICE A DAY MAXIMUM DAILY DOSE = TWO TABLETS TAKE ONE TABLET BY MOUTH TWICE A DAY MAXIMUM DAILY DOSE = TWO TABLETS SOLD: 04/28/2020 [facility] 100 unit/mL (3 mL) 04/09/2020 12:00:00 AM EST insulin pen 15 INJECT 10 UNITS SUBCUTANEOUSLY PRIOR TO EACH MEAL DIRECTED INJECT 10 UNITS SUBCUTANEOUSLY PRIOR TO EACH MEAL DIRECTED SOLD: 04/13/2020 [facility] 100 unit/mL (3 mL) 04/09/2020 12:00:00 AM EST insulin pen 15 INJECT 10 UNITS SUBCUTANEOUSLY PRIOR TO EACH MEAL DIRECTED INJECT 10 UNITS SUBCUTANEOUSLY PRIOR TO EACH MEAL DIRECTED SOLD: 12/08/2020 [facility] 100 unit/mL (3 mL) 04/09/2020 12:00:00 AM EST insulin pen 15 INJECT 10 UNITS SUBCUTANEOUSLY PRIOR TO EACH MEAL DIRECTED INJECT 10 UNITS SUBCUTANEOUSLY PRIOR TO EACH MEAL DIRECTED SOLD: 10/16/2020 [facility] 100 unit/mL (3 mL) 04/09/2020 12:00:00 AM EST insulin pen 9 INJECT 10 UNITS SUBCUTANEOUSLY PRIOR TO EACH MEAL DIRECTED INJECT 10 UNITS SUBCUTANEOUSLY PRIOR TO EACH MEAL DIRECTED SOLD: 07/17/2020 [facility] 100 unit/mL (3 mL) 04/09/2020 12:00:00 AM EST insulin pen 15 INJECT 10 UNITS SUBCUTANEOUSLY PRIOR TO EACH MEAL DIRECTED INJECT 10 UNITS SUBCUTANEOUSLY PRIOR TO EACH MEAL DIRECTED SOLD: 09/03/2020 [facility] 100 unit/mL (3 mL) 04/09/2020 12:00:00 AM EST insulin pen 9 INJECT 10 UNITS SUBCUTANEOUSLY PRIOR TO EACH MEAL DIRECTED INJECT 10 UNITS SUBCUTANEOUSLY PRIOR TO EACH MEAL DIRECTED SOLD: 07/17/2020 [facility] 15 mg 03/29/2020 12:00:00 AM EST tablet,oral only,ext.re l.12 hr 60 TAKE ONE TABLET BY MOUTH TWICE A DAY MAXIMUM DAILY DOSE = 2 TAKE ONE TABLET BY MOUTH TWICE A DAY MAXIMUM DAILY DOSE = 2 SOLD: 03/31/2020 [facility] 150 mg 03/29/2020 12:00:00 AM EST capsule 120 TAKE TWO CAPSULES BY MOUTH TWICE A DAY MAXIMUM DAILY DOSE = 4 TAKE TWO CAPSULES BY MOUTH TWICE A DAY MAXIMUM DAILY DOSE = 4 SOLD: 03/31/2020 [facility] 5-325 mg 03/29/2020 12:00:00 AM EST tablet 90 TAKE ONE TABLET BY MOUTH EVERY 8 HOURS NEEDED MAXIMUM DAILY DOSE = 3 TAKE ONE TABLET BY MOUTH EVERY 8 HOURS NEEDED MAXIMUM DAILY DOSE = 3 SOLD: 03/31/2020 [facility] 4 mg 03/17/2020 12:00:00 AM EST tablet,disintegrating 1 6 DISSOLVE ONE TABLET ON TONGUE EVERY 6 TO 8 HOURS NEEDED FOR NAUSEA / VOMITING DISSOLVE ONE TABLET ON TONGUE EVERY 6 TO 8 HOURS NEEDED FOR NAUSEA / VOMITING SOLD: 03/31/2020 [facility] 40 mg 02/23/2020 12:00:00 AM EDT tablet 30 TAKE ONE TABLET BY MOUTH EVERY DAY TAKE ONE TABLET BY MOUTH EVERY DAY SOLD: 02/26/2020 [facility] Famotidine 40 MG Oral Tablet FAMOTIDINE 02/23/2020 12:00:00 AM EDT tab let 30 TAKE ONE TABLET BY MOUTH EVERY DAY TAKE ONE TABLET BY MOUTH EVERY DAY SOLD: 09/25/2020 [facility] 40 mg 02/23/2020 12:00:00 AM EDT tablet 30 TAKE ONE TABLET BY MOUTH EVERY DAY TAKE ONE TABLET BY MOUTH EVERY DAY SOLD: 06/13/2020 [facility] Famotidine 40 MG Oral Tablet FAMOTIDINE 02/23/2020 12:00:00 AM EDT tab let 30 TAKE ONE TABLET BY MOUTH EVERY DAY TAKE ONE TABLET BY MOUTH EVERY DAY SOLD: 03/31/2020 [facility] 5-325 mg 02/23/2020 12:00:00 AM EDT tablet 90 TAKE 1 TABLET EVERY 8 HOURS NEEDED MAXIMUM DAILY DOSE = 3 TAKE 1 TABLET EVERY 8 HOURS NEEDED SANDHYA HOLGUIN DAILY DOSE = 3 SOLD: 02/26/[address] [facility] 40 mg 02/23/2020 12:00:00 AM EDT tablet 30 TAKE ONE TABLET BY MOUTH EVERY DAY TAKE ONE TABLET BY MOUTH EVERY DAY SOLD: 04/28/2020 [facility] Famotidine 40 MG Oral Tablet FAMOTIDINE 02/23/2020 12:00:00 AM EDT tab let 30 TAKE ONE TABLET BY MOUTH EVERY DAY TAKE ONE TABLET BY MOUTH EVERY DAY SOLD: 07/17/2020 [facility] Famotidine 40 MG Oral Tablet FAMOTIDINE 02/23/2020 12:00:00 AM EDT tab let 30 TAKE ONE TABLET BY MOUTH EVERY DAY TAKE ONE TABLET BY MOUTH EVERY DAY SOLD: 08/21/2020 [facility] 15 mg 02/23/2020 12:00:00 AM EDT tablet,oral only,ext.re l.12 hr 60 TAKE ONE TABLET BY MOUTH TWICE A DAY MAXIMUM DAILY DOSE = 2 TAKE ONE TABLET BY MOUTH TWICE A DAY MAXIMUM DAILY DOSE = 2 SOLD: 02/26/2020 [facility] 1,250 mcg (50,000 unit) 02/13/2020 12:00:00 AM EDT capsule 12 TAKE 1 CAPSULE BY MOUTH ONCE A WEEK TAKE 1 CAPSULE BY MOUTH ONCE A WEEK SOLD: 05/22/2020 [facility] 1,250 mcg (50,000 unit) 02/13/2020 12:00:00 AM EDT capsule 12 TAKE 1 CAPSULE BY MOUTH ONCE A WEEK TAKE 1 CAPSULE BY MOUTH ONCE A WEEK SOLD: 01/25/2021 [facility] 1,250 mcg (50,000 unit) 02/13/2020 12:00:00 AM EDT capsule 12 TAKE 1 CAPSULE BY MOUTH ONCE A WEEK TAKE 1 CAPSULE BY MOUTH ONCE A WEEK SOLD: 02/20/2020 [facility] 1,250 mcg (50,000 unit) 02/13/2020 12:00:00 AM EDT capsule 12 TAKE 1 CAPSULE BY MOUTH ONCE A WEEK TAKE 1 CAPSULE BY MOUTH ONCE A WEEK SOLD: 08/21/2020 [facility] 1,250 mcg (50,000 unit) 02/13/2020 12:00:00 AM EDT capsule 12 TAKE 1 CAPSULE BY MOUTH ONCE A WEEK TAKE 1 CAPSULE BY MOUTH ONCE A WEEK SOLD: 11/12/2020 [facility] Ergocalciferol 43231 UNT Oral Capsule [Drisdol] Drisdol 02/12/2020 12:00:00 AM EDT active [facility] ([facility]) 40 mg 01/26/2020 12:00:00 AM EDT tablet 30 TAKE ONE TABLET BY MOUTH ONCE DAILY TAKE ONE TABLET BY MOUTH ONCE DAILY SOLD: 01/30/2020 [facility] Cyclobenzaprine hydrochloride 10 MG Oral Tablet CYCLOBENZAPR INE HCL 01/26/2020 12:00:00 AM EDT tablet 60 TAKE ONE TABLET BY MOUTH THREE TIMES A DAY NEEDED TAKE ONE TABLET BY MOUTH THREE TIMES A DAY NEEDED SOLD: 06/13/2020 [facility] Cyclobenzaprine hydrochloride 10 MG Oral Tablet CYCLOBENZAPR INE HCL 01/26/2020 12:00:00 AM EDT tablet 60 TAKE ONE TABLET BY MOUTH THREE TIMES A DAY NEEDED TAKE ONE TABLET BY MOUTH THREE TIMES A DAY NEEDED SOLD: 07/27/2020 [facility] Cyclobenzaprine hydrochloride 10 MG Oral Tablet CYCLOBENZAPR INE HCL 01/26/2020 12:00:00 AM EDT tablet 60 TAKE ONE TABLET BY MOUTH THREE TIMES A DAY NEEDED TAKE ONE TABLET BY MOUTH THREE TIMES A DAY NEEDED SOLD: 01/30/2020 [facility] Cyclobenzaprine hydrochloride 10 MG Oral Tablet CYCLOBENZAPR INE HCL 01/26/2020 12:00:00 AM EDT tablet 60 TAKE ONE TABLET BY MOUTH THREE TIMES A DAY NEEDED TAKE ONE TABLET BY MOUTH THREE TIMES A DAY NEEDED SOLD: 03/31/2020 [facility] Cyclobenzaprine hydrochloride 10 MG Oral Tablet CYCLOBENZAPR INE HCL 01/26/2020 12:00:00 AM EDT tablet 60 TAKE ONE TABLET BY MOUTH THREE TIMES A DAY NEEDED TAKE ONE TABLET BY MOUTH THREE TIMES A DAY NEEDED SOLD: 09/03/2020 [facility] Cyclobenzaprine hydrochloride 10 MG Oral Tablet CYCLOBENZAPR INE HCL 01/26/2020 12:00:00 AM EDT tablet 60 TAKE ONE TABLET BY MOUTH THREE TIMES A DAY NEEDED TAKE ONE TABLET BY MOUTH THREE TIMES A DAY NEEDED SOLD: 04/28/2020 [facility] 30 mg 01/19/2020 12:00:00 AM EDT capsule,delayed release (DR/EC) 60 TAKE ONE CAPSULE BY MOUTH EVERY DAY FOR 7 DAYS THEN 2 ONCE DAILY TAKE ONE CAPSULE BY MOUTH EVERY DAY FOR 7 DAYS THEN 2 ONCE DAILY SOLD: 02/20/2020 [facility] 30 mg 01/19/2020 12:00:00 AM EDT capsule,delayed release (DR/EC) 60 TAKE ONE CAPSULE BY MOUTH EVERY DAY FOR 7 DAYS THEN 2 ONCE DAILY TAKE ONE CAPSULE BY MOUTH EVERY DAY FOR 7 DAYS THEN 2 ONCE DAILY SOLD: 03/31/2020 [facility] 30 mg 01/19/2020 12:00:00 AM EDT capsule,delayed release (DR/EC) 60 TAKE ONE CAPSULE BY MOUTH EVERY DAY FOR 7 DAYS THEN 2 ONCE DAILY TAKE ONE CAPSULE BY MOUTH EVERY DAY FOR 7 DAYS THEN 2 ONCE DAILY SOLD: 05/22/2020 [facility] 30 mg 01/19/2020 12:00:00 AM EDT capsule,delayed release (DR/EC) 60 TAKE ONE CAPSULE BY MOUTH EVERY DAY FOR 7 DAYS THEN 2 ONCE DAILY TAKE ONE CAPSULE BY MOUTH EVERY DAY FOR 7 DAYS THEN 2 ONCE DAILY SOLD: 06/25/2020 [facility] 30 mg 01/19/2020 12:00:00 AM EDT capsule,delayed release (DR/EC) 60 TAKE ONE CAPSULE BY MOUTH EVERY DAY FOR 7 DAYS THEN 2 ONCE DAILY TAKE ONE CAPSULE BY MOUTH EVERY DAY FOR 7 DAYS THEN 2 ONCE DAILY SOLD: 04/28/2020 [facility] 200 unit/mL (3 mL) 12/20/2019 12:00:00 AM EDT insulin pen 9 INJECT 40 UNITS UNDER THE SKIN ONCE DAILY 1BOX 45 DAYS INJECT 40 UNITS UNDER THE SKIN ONCE JUDY Y 1BOX 45 DAYS SOLD: 09/03/2020 [facility] 200 unit/mL (3 mL) 12/20/2019 12:00:00 AM EDT insulin pen 9 INJECT 40 UNITS UNDER THE SKIN ONCE DAILY 1BOX 45 DAYS INJECT 40 UNITS UNDER THE SKIN ONCE JUDY Y 1BOX 45 DAYS SOLD: 06/25/2020 [facility] 200 unit/mL (3 mL) 12/20/2019 12:00:00 AM EDT insulin pen 9 INJECT 40 UNITS UNDER THE SKIN ONCE DAILY 1BOX 45 DAYS INJECT 40 UNITS UNDER THE SKIN ONCE JUDY Y 1BOX 45 DAYS SOLD: 04/28/2020 [facility] 200 unit/mL (3 mL) 12/20/2019 12:00:00 AM EDT insulin pen 9 INJECT 40 UNITS UNDER THE SKIN ONCE DAILY 1BOX 45 DAYS INJECT 40 UNITS UNDER THE SKIN ONCE JUDY Y 1BOX 45 DAYS SOLD: 02/20/2020 [facility] FLASH GLUCOSE SENSOR 11/22/2019 12:00:00 AM EDT kit 2 APPLY ONE PATCH EVERY 14 DAYS APPLY ONE PATCH EVERY 14 DAYS SOLD: 03/31/2020 [facility] FLASH GLUCOSE SENSOR 11/22/2019 12:00:00 AM EDT kit 2 APPLY ONE PATCH EVERY 14 DAYS APPLY ONE PATCH EVERY 14 DAYS SOLD: 02/20/2020 [facility] FLASH GLUCOSE SENSOR 11/22/2019 12:00:00 AM EDT kit 2 APPLY ONE PATCH EVERY 14 DAYS APPLY ONE PATCH EVERY 14 DAYS SOLD: 05/01/2020 [facility] 0.25 mg or 0.5 mg(2 mg/1.5 mL) 09/01/2019 12:00:00 AM EDT pe n injector 1 INJECT 0.25 MG UNDER THE SKIN ONCE WEEKLY INJECT 0.25 MG UNDER THE SKIN ONCE WEEKLY SOLD: 02/20/2020 [facility] 0.25 mg or 0.5 mg(2 mg/1.5 mL) 09/01/2019 12:00:00 AM EDT pe n injector 1 INJECT 0.25 MG UNDER THE SKIN ONCE WEEKLY INJECT 0.25 MG UNDER THE SKIN ONCE WEEKLY SOLD: 05/01/2020 [facility] Insurance Providers Payer name Policy type / Coverage type Policy ID Covered green party ID Covered green party's relationship to barron Policy Barron Plan Information EMPIRE PLAN [facility] U [id number] Spouse [id number] [facility] EMPIRE [place] DIV [id number] WI2 [id number] [employer] [id number] [employer] O [id number] S [id number] [facility] Commercial [id number] Family Dependent [id number] E[facility]IRE ([facility] O [id number] P [id number] [facility] Commercial [id number] Family Dependent [id number] [facility]LY [facility] EMPIRE -PHYSICIAN UNAVAILABLE 18 UNAVAILABLE EMPIRE BLUE CROSS BLUE SHIELD-O/P [id number] [facility] Commercial [id number] Family Dependent [id number] EMPIRE ([facility]) O [id number] P [id number] [facility] [place] Plan Commercial [id number] Family Dependent [id number] [facility] Commercial [id number] Family Dependent [id number] [facility] Health Maintenance Organization (HMO) [id number] Family Dependent [id number] EXCELLUS BLUE CROSS BLUE SHIELD HEA [id number] SP [id number] [employer] [id number] WI2 [id number] [facility] EMPIRE BAKARI DIV [id number] [id number] [facility] Health Maintenance Organization (HMO) [id number] Family Dependent [id number] [facility] Commercial [id number] [facility] Commercial [id number] [facility] Commercial [id number] [facility] Commercial [id number] [facility] Commercial [id number] [facility] Commercial [id number] [facility] Commercial [id number] [facility] Commercial [id number] [facility] Commercial [id number] Self [facility] O [id number] O [id number] BCBS EMPIRE BAKARI DIV [id number] WI2 [id number] BLUE CROSS O [id number] SP [id number] [place] Plan [facility] [id number] [facility] [id number] WI2 [id number] BLUE CROSS O [id number] SP [id number] Problems, Conditions, and Diagnoses Code Display Name Description Problem Type Effective Dates Data Source(s) [id number] Pure hypercholesterolemia Pure hypercholesterolemia Pr oblem 09/10/2020 12:00:00 AM EDT [facility] ([facility]) E29.1 Low testosterone Low testosterone Problem 02/11/2020 12 :00:00 AM EDT eCW1 ([facility]) 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 Problem 02/11/2020 12:00:00 AM EDT eCW1 ([facility]) Surgeries/Procedures Procedure Description Date Indications Data Source(s) Amb Glucose Monitoring Interpretation And Report 12/03 12:00:00 AM EDT [facility] ([facility]) OFFICE OUTPATIENT VISIT 40 MINUTES 12/03/2020 12:00:00 AM EDT [facility] ([facility]) OFFICE OUTPATIENT VISIT 15 MINUTES 10/26/2020 12:00:00 AM EDT [facility] ([facility]) Amb Glucose Monitoring Interpretation And Report 10/20 12:00:00 AM EDT [facility] ([facility]) OFFICE OUTPATIENT VISIT 25 MINUTES 10/20/2020 12:00:00 AM EDT [facility] ([facility]) OFFICE OUTPATIENT VISIT 25 MINUTES 10/19/2020 12:00:00 AM EDT [facility] ([facility]) Amb Glucose Monitoring Interpretation And Report 09/13 12:00:00 AM EDT [facility] ([facility]) OFFICE OUTPATIENT NEW 60 MINUTES 09/13/2020 12:00:00 A M EDT [facility] ([facility]) OFFICE OUTPATIENT VISIT 15 MINUTES 07/26/2020 12:00:00 AM EDT [facility] ([facility]) Results ID Date Data Source [id number] 12/03/2020 10:47:00 AM EDT [facility] ([facility]) Name Value Range Interpretation Code Description Data Shamika rce(s) Supporting Document(s) Glucose [Mass/volume] in Serum or Plasma 138 [facility] ([facility]) Hemoglobin A1c/Hemoglobin.total in Blood Laboratory test result [facility] ([facility]) ID Date Data Source [id number] 10/21/2020 08:35:00 AM EDT [facility] ([facility]) Name Value Range Interpretation Code Description Data Shamika rce(s) Supporting Document(s) Testosterone [Mass/volume] in Serum or Plasma 299 ng/dL [id number] [facility] ([facility]) <content>Adult male reference interval i s based on a population of</content>
<content>healthy nonobese males (BMI <30) between 19 and 39 years</content>
<content>old. dima Farnkel.al. JCEM 2017,102;3594-7597. PMID:</content>
<content>[id number].</content>
<content></content>
<co ntent></content> Testosterone %Free+Weakly Boun 14.1 % 9.0-46.0 [facility] ([facility]) This test was developed and its performa nce characteristics determined by [employer]. It has not been cleared or approved by the Food and Drug Administration. Deprecated Testosterone.bioavailable+Free/Testosterone .total in Serum or Plasma 42.2 ng/dL 40.0-250.0 [facility] ([facility]) Performed at: [facility] [address] [place] [address] [id number] Stock Associate: Tim Coleman MD, Phone: [phone] Performed at: [facility] [id number] Stock Associate: Chari Tena MD, Phone: [phone] Performed at: [facility] [id number] Stock Associate: Hardik Samuel MD, Phone: [phone] ID Date Data Source [id number] 10/21/2020 08:35:00 AM EDT [facility] ([facility]) Name Value Range Interpretation Code Description Data Shamika rce(s) Supporting Document(s) Prolactin Total 16.3 ng/mL [facility] ([facility]) Hook effect or prozone effect has been r uled out by performing additional dilution analysis on all prolactin testing. This test was developed and its performance characteristics determined by [employer]. It has not been cleared or approved by the Food and Drug Administration. Reference Range: Male Children and Adults: 4.04 - 15.2 Please note reference interval change Prolactin Monomeric 11.8 ng/mL [facility] ([facility]) Macroprolactin is reported as a percenta ge of prolactin as calculated: Macroprolactin (as %) = ((Prolactin - Monomeric Prolactin)/ Prol actin) X 100. where Prolactin is measured in serum/plasma (without pre-treatment). Monomeric Prolactin is measured in serum/plasma that has been pre-treated with polyethylene glycol (PEG) to remove Macroprolactin. Monomeric Prolactin, the bioactive form, is used to assess true hyperprolactinemia not due to the presence of Macroprolactin. This test was developed and its performance characteristics determined by [employer]. It has not been cleared or approved by the Food and Drug Administration. Reference Range: Male Children and Adults: 4.04 - 15.2 Percent Macroprolactin 28 % [facility] ([facility]) ID Date Data Source [id number] 10/21/2020 08:35:00 AM T [facility] ([facility]) Name Value Range Interpretation Code Description Data Shamika rce(s) Supporting Document(s) Testosterone [Mass/volume] in Serum or Plasma 327 ng/dL [phone] [facility] ([facility]) NORMAL RANGES ARE FOR ADULT FEMALES (OVE R 15 YRS) AND MALES (OVER 19 YRS). FOR PEDIATRIC RANGES PLE ASE CONSULT LITERATURE. Prostate specific Ag [Mass/volume] in Serum or Plasma 0.20 ng/mL [facility] ([facility]) The PSA assay is performed on the [employer] eDiscovery[employer] analyzer by [employer] sandwich chemiluminescent immunoassay and should not be compared interchangeably with other methods. It should not be used alone as a screening test or diagnosis for the presence or absence of malignant disease. Predictions of disease recurrence should not be based solely on values obtained from serial patient serum values. ID Date Data Source [id number] 10/21/2020 08:35:00 AM [facility] ([facility]) Name Value Range Interpretation Code Description Data Shamika rce(s) Supporting Document(s) Testosterone [Mass/volume] in Serum or Plasma 327 ng/dL [phone] [facility] ([facility]) NORMAL RANGES ARE FOR ADULT FEMALES (OVE R 15 YRS) AND MALES (OVER 19 YRS). FOR PEDIATRIC RANGES PLE ASE CONSULT LITERATURE. Deprecated Testosterone.bioavailable+Free/Testosterone .total in Serum or Plasma Laboratory test result [facility] ([facility]) Prostate specific Ag [Mass/volume] in Serum or Plasma 0.20 ng/mL [facility] ([facility]) The PSA assay is performed on the [employer] e[employer]covery[employer] analyzer by [employer] sandwich chemiluminescent immunoassay and should not be compared interchangeably with other methods. It should not be used alone as a screening test or diagnosis for the presence or absence of malignant disease. Predictions of disease recurrence should not be based solely on values obtained from serial patient serum values. ID Date Data Source [id number] 10/21/2020 08:35:00 AM EDT [facility] ([facility]) Name Value Range Interpretation Code Description Data Shamika rce(s) Supporting Document(s) Testosterone Total 299 ng/dL [phone] [facility] ([facility]) <content>Adult male reference interval i s based on a population of</content>
<content>healthy nonobese males (BMI <30) between 19 and 39 years</content>
<content>old. Marlys et.al. JCEM 2017,102;7380-2866. PMID:</content>
<content>[id number].</content>
<content></content> Testosterone Free+Weakly Bound 42.2 ng/dL 40.0-250.0 [facility] Performed at: [facility] [address] [place] [address] [id number] Stock Associate: Tim Coleman MD, Phone: [phone] Performed at: - [facility] [id number] Stock Associate: Chari Tena MD, Phone: [phone] Performed at: [facility] [address] [id number] Stock Associate: Hardik Samuel MD, Phone: [phone] Testosterone %Free+Weakly Boun 14.1 % 9.0-46.0 [facility] ([facility]) This test was developed and its performa nce characteristics determined by [facility]. It has not been cleared or approved by the Food and Drug Administration. ID Date Data Source [id number] 10/21/2020 08:35:00 AM EDT [facility] ([facility]) Name Value Range Interpretation Code Description Data Shamika rce(s) Supporting Document(s) Prolactin Total 16.3 ng/mL [facility] Hook effect or prozone effect has been r uled out by performing additional dilution analysis on all prolactin testing. This test was developed and its performance characteristics determined by [facility]. It has not been cleared or approved by the Food and Drug Administration. Reference Range: Male Children and Adults: 4.04 - 15.2 Please note reference interval change Prolactin Monomeric 11.8 ng/mL [facility]) Macroprolactin is reported as a percenta ge of prolactin as calculated: Macroprolactin (as %) = ((Prolactin - Monomeric Prolactin)/ Prol actin) X 100. where Prolactin is measured in serum/plasma (without pre-treatment). Monomeric Prolactin is measured in serum/plasma that has been pre-treated with polyethylene glycol (PEG) to remove Macroprolactin. Monomeric Prolactin, the bioactive form, is used to assess true hyperprolactinemia not due to the presence of Macroprolactin. This test was developed and its performance characteristics determined by [facility]. It has not been cleared or approved by the Food and Drug Administration. Reference Range: Male Children and Adults: 4.04 - 15.2 Percent Macroprolactin 28 % [facility] ([facility]) ID Date Data Source [id number] 10/21/2020 08:33:00 AM EDT [facility]) Name Value Range Interpretation Code Description Data [facility] Supporting Document(s) Thyrotropin [Units/volume] in Serum or Plasma by Detec tion limit <= 0.05 mIU/L 5.23 uIU/mL 0.36-3.74 [facility] ([facility] ) ID Date Data Source [id number] 10/20/2020 02:30:00 PM EDT [facility] ([facility]) Name Value Range Interpretation Code Description Data [facility] rce(s) Supporting Document(s) Hemoglobin A1c/Hemoglobin.total in Blood 9.8 [facility] ([facility]) Glucose [Mass/volume] in Serum or Plasma 164 [facility] ([facility] ) ID Date Data Source [id number] 09/16/2020 08:50:00 AM EDT [facility] ([facility]) Name Value Range Interpretation Code Description Data Shamika rce(s) Supporting Document(s) Microalbumin Urine 5.5 mg/L 1.3-20.0 [facility] ([facility]) Urine Creatinine 61.9 mg/dL 30.0-125.0 [facility] ([facility]) Microalb/Creat Ratio 8.9 ug/mg 0.0-30.0 [facility] ([facility]) ID Date Data Source [id number] 09/16/2020 08:50:00 AM EDT [facility] ([facility]) Name Value Range Interpretation Code Description Data Shamika rce(s) Supporting Document(s) Glucose [Mass/volume] in Serum or Plasma 240 mg/dL 74-99 [facility] ([facility]) 100-125 mg/dL PRE-DIABETES/FASTING >126 mg/dL DIABETES/FASTING Urea nitrogen [Mass/volume] in Serum or Plasma 14 mg/dL 7-18 [facility] ([facility]) Creatinine 0.9 mg/dL 0.6-1.3 [facility]) Potassium [Moles/volume] in Serum or Plasma 4.0 meq/L 3.5-5.1 [facility] ([facility]) Sodium [Moles/volume] in Serum or Plasma 136 meq/L 136-145 [facility] ([facility]) Chloride [Moles/volume] in Serum or Plasma 102 meq/L 98-107 [facility] ([facility]) Calcium [Mass/volume] in Serum or Plasma 8.8 mg/dL 8.5-10.1 [facility] ([facility]) Carbon dioxide, total [Moles/volume] in Serum or Plasma 29 meq/L 21 -32 [facility] ([facility]) Glomerular filtration rate/1.73 sq M pre dicted among non-blacks [Volume Rate/Area] in Serum or Plasma by Creatinine-based formula (MDRD) Laboratory test result [facility] ([facility] ) Glomerular filtration rate/1.73 sq M pre dicted among blacks [Volume Rate/Area] in Serum or Plasma by Creatinine-based formula (MDRD) Laboratory test result [facility] ([facility]) <content>CHRONIC KIDNEY DISEASE STAGING PER NKF</content>
<content></content>
<content>STAGE I & II GFR >= 60 NORMAL TO MILDLY DECREASED</content>
<content>STAGE III GFR 30-59 MODERATELY DECREASED</content>
<content>STAGE IV GFR 15-29 SEVERELY DECREASED</content>
<content>STAGE V GFR <15 VERY LITTLE GFR LEFT</content>
<content>ESRD GFR <15 ON SHAFT MECHANIC</content>
<content></content> ID Date Data Source [id number] 08/02/2020 08:46:00 AM EDT [facility] ([facility]) Name Value Range Interpretation Code Description Data Shamika rce(s) Supporting Document(s) Follicle Stimulating Hormone 15.2 mIU/mL 1.4-18.1 [facility] ([facility]) Luteinizing Hormone 2.9 mIU/mL 1.5-9.3 [facility] ([facility]) ID Date Data Source [id number] 08/02/2020 08:43:00 AM EDT [facility] ([facility]) Name Value Range Interpretation Code Description Data Shamika rce(s) Supporting Document(s) Thyrotropin [Units/volume] in Serum or Plasma by Detec tion limit <= 0.05 mIU/L 4.11 uIU/mL 0.36-3.74 [facility] ([facility] ) ID Date Data Source [id number] 08/02/2020 08:43:00 AM EDT [facility] ([facility]) Name Value Range Interpretation Code Description Data Shamika rce(s) Supporting Document(s) Leukocytes [#/volume] in Blood by Automated count 7.5 x10*3/UL 4.1-10 .9 [facility] ([facility]) Hemoglobin [Mass/volume] in Blood 15.9 g/dL 12.0-18.0 [facility] ([facility]) Erythrocytes [#/volume] in Blood by Automated count 5.08 x10*6/UL 4.2 0-6.30 [facility] ([facility]) Hematocrit [Volume Fraction] of Blood by Automated count 44.7 % 3 7.0-51.0 [facility] ([facility]) MCV 87.9 fL 80.0-97.0 [facility]) MCHC 35.7 g/dL 31.0-38.0 [facility] ([facility]) MCH 31.4 pg 26.0-32.0 [facility] ([facility]) Erythrocyte distribution width [Ratio] by Automated count 12.3 % 11.6-13.7 [facility] ([facility]) Platelets [#/volume] in Blood by Automated count 334 x10*3/UL 140-440 [facility] ([facility]) MPV 8.1 FL 7.8-11.0 [facility] ([facility]) Mid % 7.2 % 1.7-9.3 [facility] ([facility]) Lymph % 33.1 % 10.0-58.5 [facility] ([facility]) Neut % 59.7 % 37.0-92.0 [facility] ([facility]) Lymph # 2.5 x10*3/UL 0.6-4.1 [facility] ([facility]) Mid # 0.5 x10*3/UL 0.1-0.6 [facility] ([facility]) Neut # 4.5 x10*3/UL 2.0-7.8 [facility] ([facility]) ID Date Data Source [id number] 07/26/2020 10:50:00 AM EDT [facility] ([facility]) Name Value Range Interpretation Code Description Data Shamika rce(s) Supporting Document(s) Testosterone Total For T&D 254.0 ng/dL 264-916 [facility] ([facility]) <content>Adult male reference interval i s based on a population of</content>
<content>healthy nonobese males (BMI <30) between 19 and 39 years</content>
<content>old. dima Frankel.al. JCEM 2017,102;7970-6712. PMID:</content>
<content>[id number].</content>
<content></content> Testosterone Free (Direct) 4.3 pg/mL 7.2-24.0 [facility] ([facility]) Performed at: [facility] [address] [id number] Stock Associate: Chari Tena MD, Phone: [phone] ID Date Data Source [id number] 07/26/2020 10:50:00 AM EDT [facility] ([facility]) Name Value Range Interpretation Code Description Data Shamika rce(s) Supporting Document(s) Hemoglobin A1c/Hemoglobin.total in Blood 9.3 % [facility] ([facility]) Lab Result Notes: Pre-Diabetes 5.7 - 6.4 % Diabetes = or > 6.5% Glucose mean value [Mass/volume] in Blood Estimated fr om glycated hemoglobin 220 mg/dL 60-110 [facility] ([facility] ) ID Date Data Source [id number] 07/26/2020 10:50:00 AM EDT [facility] ([facility]) Name Value Range Interpretation Code Description Data Shamika rce(s) Supporting Document(s) Hemoglobin A1c/Hemoglobin.total in Blood Laboratory test result [facility] ([facility]) ID Date Data Source [id number] 04/20/2020 02:05:00 PM EST [facility] ([facility]) Name Value Range Interpretation Code Description Data Shamika rce(s) Supporting Document(s) Testosterone Free (Direct) 5.2 pg/mL 7.2-24.0 [facility] ([facility]) Performed at: [facility] [address] [id number] Stock Associate: Chari Tena MD, Phone: [phone] Testosterone Total For T&D 227.0 ng/dL 264-916 [facility] ([facility]) <content>Adult male reference interval i s based on a population of</content>
<content>healthy nonobese males (BMI <30) between 19 and 39 years</content>
<content>old. Marlys et.al. JCEM 2017,102;8047-4744. PMID:</content>
<content>[id number].</content>
<content></content> ID Date Data Source [id number] 04/20/2020 02:04:00 PM EST [facility] ([facility]) Name Value Range Interpretation Code Description Data Shamika rce(s) Supporting Document(s) Calcidiol [Mass/volume] in Serum or Plasma 25.0 24.0-80.0 [facility] ([facility]) This test was performed using FastPack I P Vitamin D immunoassay kit. Values obtained with different assay methods should not be used interchangeably. ID Date Data Source [id number] 04/20/2020 02:03:00 PM EST [facility] ([facility]) Name Value Range Interpretation Code Description Data Shamika rce(s) Supporting Document(s) Cholesterol [Mass/volume] in Serum or Plasma 281 mg/dL 131-200 [facility] ([facility]) Triglyceride [Mass/volume] in Serum or Plasma 441 mg/dL 30-150 [facility] ([facility]) Cholesterol in HDL [Mass/volume] in Serum or Plasma 40 mg/dL 35-60 [facility] ([facility]) Cholesterol in LDL [Mass/volume] in Serum or Plasma by calculation Laboratory test result 50-159 [facility] ([facility] ) Unable to calculate ID Date Data Source [id number] 04/20/2020 02:03:00 PM EST [facility] ([facility]) Name Value Range Interpretation Code Description Data Shamika rce(s) Supporting Document(s) Glucose [Mass/volume] in Serum or Plasma 134 mg/dL 74-99 [facility] ([facility]) 100-125 mg/dL PRE-DIABETES/FASTING >126 mg/dL DIABETES/FASTING Urea nitrogen [Mass/volume] in Serum or Plasma 13 mg/dL 7-18 [facility] ([facility]) Sodium [Moles/volume] in Serum or Plasma 138 meq/L 136-145 [facility] ([facility]) Creatinine 0.9 mg/dL 0.6-1.3 [facility] Potassium [Moles/volume] in Serum or Plasma 3.6 meq/L 3.5-5.1 [facility] ([facility]) Chloride [Moles/volume] in Serum or Plasma 101 meq/L 98-107 [facility] ([facility]) Calcium [Mass/volume] in Serum or Plasma 8.9 mg/dL 8.5-10.1 [facility] ([facility]) Carbon dioxide, total [Moles/volume] in Serum or Plasma 29 meq/L 21 -32 [facility] ([facility]) Total Bilirubin 0.3 mg/dL 0.2-1.0 [facility] ([facility]) Alkaline phosphatase isoenzyme [Units/volume] in Serum or Pl asma 104 mg/dL 46-116 [facility] ([facility]) Alanine aminotransferase [Enzymatic activity/volume] in Seru m or Plasma 9 U/L 12-78 [facility] ([facility]) Aspartate aminotransferase [Enzymatic activity/volume] in Serum or Plasma Laboratory test result 15-37 [facility] ([facility]) Albumin [Mass/volume] in Serum or Plasma 3.7 g/dL 3.4-5.0 [facility] ([facility]) A/G Ratio 1.00 CALC 1.00-1.90 [facility]) Proteinase 3 Ab [Units/volume] in Serum 7.4 g/dL 6.4-8.2 [facility] ([facility]) Glomerular filtration rate/1.73 sq M pre dicted among non-blacks [Volume Rate/Area] in Serum or Plasma by Creatinine-based formula (MDRD) Laboratory test result [facility] ([facility] ) Glomerular filtration rate/1.73 sq M pre dicted among blacks [Volume Rate/Area] in Serum or Plasma by Creatinine-based formula (MDRD) Laboratory test result [facility] ([facility]) <content>CHRONIC KIDNEY DISEASE STAGING PER NKF</content>
<content></content>
<content>STAGE I & II GFR >= 60 NORMAL TO MILDLY DECREASED</content>
<content>STAGE III GFR 30-59 MODERATELY DECREASED</content>
<content>STAGE IV GFR 15-29 SEVERELY DECREASED</content>
<content>STAGE V GFR <15 VERY LITTLE GFR LEFT</content>
<content>ESRD GFR <15 ON SHAFT MECHANIC</content>
<content></content> ID Date Data Source [id number] 04/20/2020 02:03:00 PM EST [facility] ([facility]) Name Value Range Interpretation Code Description Data Shamika rce(s) Supporting Document(s) Hemoglobin A1c/Hemoglobin.total in Blood 9.6 % [facility] ([facility]) Lab Result Notes: Pre-Diabetes 5.7 - 6.4 % Diabetes = or > 6.5% Glucose mean value [Mass/volume] in Blood Estimated fr om glycated hemoglobin 229 mg/dL 60-110 [facility] ([facility] ) ID Date Data Source [id number] 04/20/2020 02:03:00 PM EST [facility]) Name Value Range Interpretation Code Description Data Shamika rce(s) Supporting Document(s) Hemoglobin A1c/Hemoglobin.total in Blood Laboratory test result [facility] ([facility]) ID Date Data Source [id number] 03/16/2020 10:20:00 AM EST [facility] ([facility]) Name Value Range Interpretation Code Description Data Shamika rce(s) Supporting Document(s) Appearance, Urine RFX Laboratory test result [facility] ([facility]) PH,Urine RFX 5.0 units 5.0-9.0 [facility] ([facility]) Color, Urine RFX Laboratory test result [facility] ([facility]) Protein, Urine Auto RFX Laboratory test result [facility] ([facility]) Specific [place] Ur Auto RFX 1.038 1.002-1.035 [facility] ([facility]) Glucose, Urine (Ua) Auto RFX Laboratory test result [facility] ([facility]) Ketone, Urine Auto RFX Laboratory test result [facility] ([facility]) Urobilinogen, Urine Auto RFX 0.2 mg/dL 0.0-2.0 [facility] ([facility]) Nitrite, Urine Auto RFX Laboratory test result [facility] ([facility]) Bilirubin, Urine Auto RFX Laboratory test result [facility] ([facility]) Leukocyte Esterase Ur Auto RFX Laboratory test result [facility] ([facility]) Blood, Urine Blood RFX Laboratory test result [facility] ([facility]) WBC, Urine Auto RFX 1 /HPF 0-3 [facility] ([facility]) Bacteria, Urine Auto RFX Laboratory test result [facility] ([facility]) RBC, Urine Auto RFX 0 /HPF 0-3 [facility] ([facility]) Mucus, Urine RFX Laboratory test result [facility] ([facility]) Squam Epithelial Cell Ur Aurfx 0 /HPF 0-6 [facility] ([facility]) Hyaline Cast, Urine Auto RFX 0 /LPF 0-1 [facility] ([facility]) ID Date Data Source [id number] 03/16/2020 07:53:00 AM EST [facility] ([facility]) Name Value Range Interpretation Code Description Data Shamika rce(s) Supporting Document(s) Laboratory test finding (navigational concept) 356 mg/dL 70-105 [facility] ([facility]) Laboratory test finding (navigational concept) 53.0 % 38.0-51.0 [facility] ([facility]) Laboratory test finding (navigational concept) 4.2 meq/L 3.5-5.1 [facility] ([facility]) Laboratory test finding (navigational concept) 132 meq/L 136-145 [facility] ([facility]) Laboratory test finding (navigational concept) 4.7 mg/dL 4.5-5.3 [facility] ([facility]) Laboratory test finding (navigational concept) 97 meq/L 98-109 [facility] ([facility]) Laboratory test finding (navigational concept) 0.7 mg/dL 0.6-1.3 [facility] ([facility]) Laboratory test finding (navigational concept) 20.0 MM/L 23.0-27.0 [facility] ([facility]) Laboratory test finding (navigational concept) 24 mg/dL 8-26 [facility] ([facility]) ID Date Data Source [id number] 03/16/2020 07:26:00 AM EST [facility] ([facility]) Name Value Range Interpretation Code Description Data Shamika rce(s) Supporting Document(s) Respiratory Panel Laboratory test result [facility] ([facility]) This respiratory PCR panel detects Influ karen A H1, H3 and 2009 H1 viruses, Influenza B virus, Resp iratory Syncytial Virus, Human metapneumovirus, Parainfluenza virus 1, 2, 3 and 4, Adenovirus, Rhinovirus/Enterovirus, Coronavirus HKU1, NL63, OC43, 229E and SARS-CoV-2 (COVID 19), Bordetella pertussis, Bordetella parapertussis, Mycoplasma pneumoniae and Chlamydia pneumoniae. NEGATIVE by MULTIPLEXED NUCLEIC ACID PCR SARS-CoV-2 (COVID 19) NEGATIVE - SARS-CoV-2 (COVID19) ID Date Data Source [id number] 03/16/2020 07:26:00 AM EST [facility] ([facility]) Name Value Range Interpretation Code Description Data [facility] Supporting Document(s) Magnesium [Moles/volume] in Serum or Plasma 2.1 mg/dL 1.8-2.4 [facility] ([facility]) Amylase [Enzymatic activity/volume] in Serum or Plasma 91 U/L 25- 115 [facility] ([facility]) Natriuretic peptide.B prohormone N-Terminal [Mass/volu me] in Serum or Plasma 24 pg/mL [facility] ([facility] ) ID Date Data Source [id number] 03/16/2020 07:26:00 AM EST [facility]) Name Value Range Interpretation Code Description Data [facility](s) Supporting Document(s) Ast/Sgot 12 U/L 7-37 [facility]) Alkaline Phosphatase 100 U/L 45-117 [facility] ([facility]) Alt/SGPT 20 U/L 12-78 [facility] ([facility]) Bilirubin,Direct 0.2 mg/dL 0.0-0.2 [facility] ([facility]) Bilirubin,Total 0.9 mg/dL 0.2-1.0 [facility] ([facility]) Total Protein 7.6 GM/DL 6.4-8.2 [facility] ([facility]) Albumin 3.9 GM/DL 3.2-5.2 [facility]) Albumin/Globulin Ratio 1.1 [facility] ([facility]) ID Date Data Source [id number] 03/16/2020 07:26:00 AM EST [facility] ([facility]) Name Value Range Interpretation Code Description Data Shamika rce(s) Supporting Document(s) CK-MB Value Mass Laboratory test result [facility] ([facility]) CPK Creatine Phosphokinase 40 U/L 39-308 [facility] ([facility]) Troponin I Laboratory test result [facility] ([facility]) <content>Troponin I Reference Interval f or Siemens Drifting LOCI:</content>
<content></content>
<content>99th Percentile= 0.00-0.045 ng/ml</content>
<content></content>
<content>Risk Stratification:</content>
<content><= 0.10 ng/ml Decreased Risk for Adverse Clinical</content>
<content>Events.</content>
<content>0.10-1.50 ng/ml Increased Risk for Adverse Clinical</content>
<content>Events. Evaluation of additional</content>
<content>criterion and/or repeat testing in 2-6</content>
<content>hours is suggested to rule out myocardial</content>
<content>damage.</content>
<content>>= 1.50 ng/ml Indicative of Myocardial Injury.</content>
<content></content> MB/CK Relative Index 2.50 [facility] ([facility]) <content>DIAGNOSIS CRITERIA</content>
<content>MMB ng/ml Relative Index (RI)</content>
<content>NON-AMI < or = 5 N/A</content>
<content>SILVA ZONE > 5 < or = 4</content>
<content>AMI > 5 > 4</content>
<content></content> ID Date Data Source [id number] 03/16/2020 07:26:00 AM EST [facility] ([facility]) Name Value Range Interpretation Code Description Data Shamika rce(s) Supporting Document(s) Lipoprotein lipase [Enzymatic activity/volume] in Serum or P lasma 257 U/L 73-393 [facility] ([facility]) Lactate [Mass/volume] in Serum or Plasma 2.2 mmol/L 0.4-2.0 Above upper panic limits [facility] ([facility]) Y/N query for Sepsis Lactate Rule: Y ID Date Data Source [id number] 03/16/2020 07:26:00 AM EST [facility] ([facility]) Name Value Range Interpretation Code Description Data Shamika rce(s) Supporting Document(s) White Blood Count 9.8 10 4.0-10.0 [facility] ([facility]) Red Blood Count 5.66 10 4.30-6.10 [facility] ([facility]) Hemoglobin 17.0 g/dL 13.5-17.5 [facility] ([facility]) Mean Corpuscular Volume 88.3 fl 80.0-96.0 [facility] ([facility]) Mean Corpuscular Hemoglobin 30.0 pg 27.0-33.0 [facility] ([facility]) Hematocrit 50.0 % 42.0-52.0 [facility] ([facility]) Mean Corpuscular HGB Conc 34.0 g/dL 32.0-36.5 [facility] ([facility]) Red Cell Distribution Width 11.7 % 11.5-14.5 [facility] ([facility]) Platelet Count, Automated 429 10 150-450 [facility] ([facility]) Neutrophils % 63.7 % 36.0-66.0 [facility] ([facility]) Lymph % 21.7 % 24.0-44.0 [facility] Eos % 2.2 % 0.0-3.0 [facility]) Gaston % 10.6 % 0.0-5.0 [facility] Baso % 0.9 % 0.0-1.0 [facility]) Immature Granulocyte % 0.9 % 0-3.0 [facility] ([facility]) Neutrophils # 6.2 10 1.5-8.5 [facility] ([facility]) Nucleated Red Blood Cell % 0.0 % 0-0 [facility] ([facility]) Lymph # 2.1 10 1.5-5.0 [facility]) Gaston # 1.0 10 0.0-0.8 [facility] Eos # 0.2 10 0.0-0.5 [facility] Baso # 0.1 10 0.0-0.2 [facility] Procedure Social History Code Duration Value Status Description Data Source(s ) Smoking 03/10/2020 12:00:00 AM EST Former Smoker completed Former Smoker eCW1 ([facility]) Smoking 03/10/2020 12:00:00 AM EST Former Smoker completed Former Smoker eCW1 ([facility]) Smoking 02/11/2020 12:00:00 AM EDT Former Smoker completed Former Smoker eCW1 ([facility]) Smoking 02/11/2020 12:00:00 AM EDT Former Smoker completed Former Smoker [email or web address] ([facility]) Vital Signs ID Date Data Source UNK Name Value Range Interpretation Code Description Data Source(s) Oxygen saturation in Arterial blood by Pulse oximetry 97 % 97 % MEDENT ([facility]) Systolic blood pressure 122 mm[Hg] 122 mm[Hg] M EDENT ([facility]) Diastolic blood pressure 68 mm[Hg] 68 mm[Hg] [facility] ([facility]) [facility] 68 /min 68 /[facility] Body height 69.2 [in_i] 69.2 [in_i] MEDENT ([facility] ) 5'9.20" Body weight 234.25 [lb_av] 234.25 [lb_av] MEDEN T ([facility]) Body mass index (BMI) [Ratio] 34.4 kg/m2 34.4 k g/m2 MEDENT ([facility]) Systolic blood pressure 130 mm[Hg] 130 mm[Hg] M EDENT ([facility]) Diastolic blood pressure 84 mm[Hg] 84 mm[Hg] MEDENT ([facility]) Heart rate 84 /min 84 /min [facility]ENT ([facility]) Body height 70 [in_i] 70 [in_i] MEDENT ([facility]) 5'10" Body weight 229.00 [lb_av] 229.00 [lb_av] MEDEN T ([facility]) Oxygen saturation in Arterial blood by Pulse oximetry 97 % 97 % MEDENT ([facility]) Body mass index (BMI) [Ratio] 32.9 kg/m2 32.9 k g/m2 MEDENT ([facility]) Diastolic blood pressure 80 mm[Hg] 80 mm[Hg] MEDENT ([facility]) Heart rate 71 /min 71 /min [facility]ENT ([facility]) Body temperature 96.6 [degF] 96.6 [degF] MEDENT ([facility]) Body weight 232.19 [lb_av] 232.19 [lb_av] MEDEN T ([facility]) Body mass index (BMI) [Ratio] 34.1 kg/m2 34.1 k g/m2 MEDENT ([facility]) Oxygen saturation in Arterial blood by Pulse oximetry 98 % 98 % MEDENT ([facility]) Systolic blood pressure 122 mm[Hg] 122 mm[Hg] M EDENT ([facility]) Body height 69.2 [in_i] 69.2 [in_i] MEDENT ([facility]) 5'9.20" Oxygen saturation in Arterial blood by Pulse oximetry 98 % 98 % MEDENT ([facility]) Diastolic blood pressure 84 mm[Hg] 84 mm[Hg] MEDENT ([facility]) Heart rate 81 /min 81 /min [facility] ([facility]) Systolic blood pressure 124 mm[Hg] 124 mm[Hg] M EDENT ([facility]) Body temperature 97.4 [degF] 97.4 [degF] MEDENT ([facility]) Body height 69.2 [in_i] 69.2 [in_i] MEDENT ([facility]) 5'9.20" Body weight 230.50 [lb_av] 230.50 [lb_av] MEDEN T ([facility]) Body mass index (BMI) [Ratio] 33.8 kg/m2 33.8 k g/m2 MEDENT ([facility]) Diastolic blood pressure 84 mm[Hg] 84 mm[Hg] MEDENT ([facility]) Systolic blood pressure 142 mm[Hg] 142 mm[Hg] M EDENT ([facility]) Heart rate 81 /min 81 /min MEDENT ([facility]) Body temperature 96.7 [degF] 96.7 [degF] MEDENT ([facility]) Body height 69.2 [in_i] 69.2 [in_i] MEDENT ([facility]) 5'9.20" Body weight 222.50 [lb_av] 222.50 [lb_av] MEDEN T ([facility] ) Body mass index (BMI) [Ratio] 32.7 kg/m2 32.7 k g/m2 MEDENT ([facility] ) Oxygen saturation in Arterial blood by Pulse oximetry 98 % 98 % MEDENT ([facility]) Diastolic blood pressure 66 mm[Hg] 66 mm[Hg] MEDENT ([facility]) Heart rate 80 /min 80 /min MEDENT ([facility]) Body height 70 [in_i] 70 [in_i] MEDENT ([facility]) 5'10" Systolic blood pressure 114 mm[Hg] 114 mm[Hg] M EDENT ([facility]) Body weight 222.00 [lb_av] 222.00 [lb_av] MEDEN T ([facility]) Oxygen saturation in Arterial blood by Pulse oximetry 99 % 99 % MEDENT ([facility]) Body mass index (BMI) [Ratio] 31.9 kg/m2 31.9 k g/m2 MEDENT ([facility]) Heart rate 93 /min 93 /min MEDENT ([facility]) Systolic blood pressure 126 mm[Hg] 126 mm[Hg] M EDENT ([facility]) Diastolic blood pressure 76 mm[Hg] 76 mm[Hg] MEDENT ([facility]) Body height 70 [in_i] 70 [in_i] MEDENT ([facility]) 5'10" Body weight 237.00 [lb_av] 237.00 [lb_av] ADIAEN T ([facility]) Oxygen saturation in Arterial blood by Pulse oximetry 97 % 97 % MEDMIKAYLA ([facility]) Body mass index (BMI) [Ratio] 34.0 kg/m2 34.0 k g/m2 MEDENT ([facility]) Body weight 233 [lb_av] 233 [lb_av] eCW1 ([facility]) Body height 70 [in_i] 70 [in_i] eCW1 ([facility]) Body mass index (BMI) [Ratio] 33.43 kg/m2 33.43 kg/m2 W1 ([facility]) Heart rate 82 /min 82 /min eCW1 ([facility]) Respiratory rate 17 /min 17 /min eCW1 ([facility]) Body temperature 97.4 [degF] 97.4 [degF] eCW1 ( [facility]) Systolic blood pressure 142 mm[Hg] 142 mm[Hg] e CW1 ([facility]) Diastolic blood pressure mm[Hg] eCW1 ([facility]) Body weight 235 [lb_av] 235 [lb_av] eCW1 ([facility]) Body height 70 [in_i] 70 [in_i] eCW1 ([facility]) Body mass index (BMI) [Ratio] 33.72 kg/m2 33.72 kg/m2 eCW1 ([facility]) Heart rate 568 /min 568 /min eCW1 ([facility]) Respiratory rate 18 /min 18 /min eCW1 ([facility]) Body temperature 97.8 [degF] 97.8 [degF] eCW1 ( [facility]) Systolic blood pressure 134 mm[Hg] 134 mm[Hg] e CW1 ([facility]) Diastolic blood pressure 82 mm[Hg] 82 mm[Hg] eCW1 ([facility])
--- NOTE | 2021-03-30 21:24 | REPVR ---
PROCEDURE INFORMATION: Exam: CT Chest Without Contrast; Diagnostic Exam date and time: 03/30/2021 8:39 PM Age: 55 years old Clinical indication: Injury or trauma; Fall; Blunt trauma (contusions or hematomas) TECHNIQUE: Imaging protocol: Diagnostic computed tomography of the chest without contrast. Radiation optimization: All CT scans at this facility use at least one of these dose optimization techniques: automated exposure control; mA and/or kV adjustment per patient size (includes targeted exams where dose is matched to clinical indication); or iterative reconstruction. COMPARISON: CT Spine,cervical w/o contrast 03/30/2021 8:21 PM FINDINGS: Lungs: The lungs appear clear. Pleural spaces: The there is no evidence of pneumothorax or pleural effusion. Heart: The heart is normal in size. Aorta: Unremarkable. No aortic aneurysm. Lymph nodes: There is no evidence of mediastinal lymphadenopathy. Bones/joints: There is no evidence of fracture. Is there is mild anterior osteophyte formation of the thoracic spine. Soft tissues: There is no evidence of soft tissue abnormality. IMPRESSION: Clear appearing lungs. Electronically signed by: Judah Caba On 03/30/2021 21:23:43 PM
--- NOTE | 2021-03-30 21:36 | REPVR ---
PROCEDURE INFORMATION: Exam: CT Cervical Spine Without Contrast Exam date and time: 03/30/2021 8:39 PM Age: 55 years old Clinical indication: Injury or trauma; Fall; Blunt trauma TECHNIQUE: Imaging protocol: Computed tomography images of the cervical spine without contrast. Radiation optimization: All CT scans at this facility use at least one of these dose optimization techniques: automated exposure control; mA and/or kV adjustment per patient size (includes targeted exams where dose is matched to clinical indication); or iterative reconstruction. COMPARISON: CT Spine,cervical w/o contrast 12/05/2017 8:23 AM FINDINGS: Vertebrae: The dens appears intact and the lateral masses of C1 appear symmetric. There is a screw and plate device from C4 through C7. A spacing graft is noted at C5. A metallic graft is noted at the C3-C4 disc space. There is prominent posterior osteophyte formation C3-C4. There is no evidence of fracture. Soft tissues: There is no evidence of soft tissue swelling. Lungs: Lung apices are normal. IMPRESSION: 1. Postoperative changes appearing intact. 2. No evidence of acute fracture. 3. Large posterior osteophyte C3-C4 causing moderate central spinal canal stenosis greater on the right. Also bilateral C4 neural foraminal narrowing secondary to osteophyte formation. Electronically signed by: Judah Caba On 03/30/2021 21:35:08 PM
--- NOTE | 2021-03-30 21:41 | REPVR ---
PROCEDURE INFORMATION: Exam: CT Thoracic Spine Without Contrast Exam date and time: 03/30/2021 8:39 PM Age: 55 years old Clinical indication: Injury or trauma; Fall; Blunt trauma (contusions or hematomas) TECHNIQUE: Imaging protocol: Computed tomography images of the thoracic spine without contrast. Radiation optimization: All CT scans at this facility use at least one of these dose optimization techniques: automated exposure control; mA and/or kV adjustment per patient size (includes targeted exams where dose is matched to clinical indication); or iterative reconstruction. COMPARISON: MRI-Spine,Thoracic without con 09/28/2014 12:48 PM FINDINGS: Vertebrae: There is anterior osteophyte formation of the thoracic spine. The thoracic vertebra appear in alignment of the facet joints appear in alignment. Other bones/joints: There is no evidence of fracture. IMPRESSION: No evidence of fracture. Electronically signed by: Judah Caba On 03/30/2021 21:41:29 PM
--- NOTE | 2021-03-30 21:48 | REPVR ---
PROCEDURE INFORMATION: Exam: CT Lumbar Spine Without Contrast Exam date and time: 03/30/2021 8:39 PM Age: 55 years old Clinical indication: Injury or trauma; Fall; Blunt trauma (contusions or hematomas) TECHNIQUE: Imaging protocol: Computed tomography images of the lumbar spine without contrast. Radiation optimization: All CT scans at this facility use at least one of these dose optimization techniques: automated exposure control; mA and/or kV adjustment per patient size (includes targeted exams where dose is matched to clinical indication); or iterative reconstruction. COMPARISON: MRI-Spine, L.S. without con 09/28/2014 1:08 PM FINDINGS: Vertebrae: The lumbar vertebra and facet joints appear in alignment. There is no evidence of fracture. There is bridging osteophyte formation L5-S1. IMPRESSION: No evidence of fracture. Electronically signed by: Judah Caba On 03/30/2021 21:48:29 PM
--- NOTE | 2021-04-01 06:49 | ED PDOC ---
Post-Departure Follow-Up ct c spine faxed janee luong for fu Lexie Villalobos MD Apr 01, 2021 06:49
== END 2021-03-30 23:43 | disposition home or self-care (01) ==
LOC: M ED 18:27 → EDBD 18:27 → M ED 23:43
DX: S30.0XXA Contusion of lower back and pelvis, initial encounter (principal); E11.9 Type 2 diabetes mellitus without complications; W19.XXXA Unspecified fall, initial encounter; Z97.4 Presence of external hearing-aid; Z79.899 Other long term (current) drug therapy; Y92.009 Unspecified place in unspecified non-institutional (private) residence as the place of occurrence of the external cause; Y93.9 Activity, unspecified; Y99.9 Unspecified external cause status
CPT/HCPCS: 71250; 72125; 72128; 72131; 96374; 96375; 99284; J2270; J2405

== ENCOUNTER → 2021-05-04 | Outpatient (REF) | payer BC, OTHER | LOC: M LAB REF 16:49 | PROVIDERS: ATTEND Nurse Practitioner Adult Health | DX: E78.00 Pure hypercholesterolemia, unspecified (principal) ==

== ENCOUNTER 2021-09-09 14:33 | Inpatient (IN) | payer BC, OTHER ==
[~2021-09-09] VITALS: Ht 177.8 cm; Wt 96.1 kg
[~2021-09-09 14:33] MED LIST changes: -CITA40TA4 PO; +CITA40TA7 PO
[2021-09-09] MEDS ORDERED: NS 1,000 ML IV ONE ×2 (15:30→20:20)
[2021-09-09] MEDS ORDERED: ONDANSETRON 4MG/2ML VIAL IV ONE (15:30)
[2021-09-09 16:38] LABS: CK-MB VALUE MASS < 1.0 NG/ML (<3.6); CPK CREATINE PHOSPHOKINASE 42 U/L (39-308); MB/CK RELATIVE INDEX 2.38 (< OR =4)
[2021-09-09 16:40] LABS: OSMOLALITY SERUM 343 MOSM/KG (275-295)
[2021-09-09 16:47] LABS: ACETONE/KETONE > 46.00 MG/DL (<2.81); ALBUMIN 4.3 GM/DL (3.2-5.2); ALT/SGPT 29 U/L (12-78); BASO # 0.2 10^3/uL (0.0-0.2); BASO % 0.7 % (0.0-1.0); BILIRUBIN,DIRECT 0.2 MG/DL (0.0-0.2); BILIRUBIN,TOTAL 0.7 MG/DL (0.2-1.0); BLOOD UREA NITROGEN 33 MG/DL (7-18); CALCIUM LEVEL 9.2 MG/DL (8.5-10.1); CARBON DIOXIDE LEVEL 9 MEQ/L (21-32); CHLORIDE LEVEL 93 MEQ/L (98-107); CREATININE FOR GFR 1.94 MG/DL (0.70-1.30); GLOMERULAR FILTRATION RATE 38.6 (>56); GLUCOSE, FASTING 750 MG/DL (70-100); HEMATOCRIT 52.9 % (42.0-52.0); HEMOGLOBIN 17.8 g/dl (13.5-17.5); LIPASE 954 U/L (73-393); LYMPH % 7.6 % (24.0-44.0); MEAN CORPUSCULAR HEMOGLOBIN 31.3 pg (27.0-33.0); MEAN CORPUSCULAR HGB CONC 33.6 g/dl (32.0-36.5); MONO # 2.7 10^3/uL (0.0-0.8); MONO % 9.9 % (2.0-8.0); NEUTROPHILS # 21.5 10^3/uL (1.5-8.5); NEUTROPHILS % 80.1 % (36.0-66.0); PLATELET COUNT, AUTOMATED 478 10^3/uL (150-450); RED BLOOD COUNT 5.69 10^6/uL (4.30-6.10); SODIUM LEVEL 130 MEQ/L (136-145); TOTAL PROTEIN 8.2 GM/DL (6.4-8.2); WHITE BLOOD COUNT 26.8 10^3/uL (4.0-10.0)
[2021-09-09] MEDS ORDERED: INSULIN IV RATE CHANGE DOCUMENTATION ML/HR XX SCH (16:55)
[2021-09-09] MEDS ORDERED: INSULIN REGULAR IN 0.9 % NACL 100 UNIT in IV 1 EA IV SCH ×2 (16:55)
[2021-09-09] MEDS ORDERED: cefTRIAXone SOD 2 GM in D5W MINI-BAG PLUS 50 ML IV ONE (16:55)
[2021-09-09] MEDS ORDERED: NS 2,070 ML in IV 1 EA IV ONE (16:55)
[2021-09-09 17:17] LABS: HEMOGLOBIN A1c 10.2 %
[2021-09-09 18:36] LABS: VENOUS BASE EXCESS -23.4 (-2.0-2.0); VENOUS HCO3 6.5 MEQ/L (23.0-27.0); VENOUS O2 SATURATION 85.3 % (60.0-80.0); VENOUS PARTIAL PRESSURE CO2 26.1 mmHg (38.0-50.0); VENOUS PARTIAL PRESSURE O2 58.5 mmHg (30.0-50.0); VENOUS PH 7.012 UNITS (7.330-7.430); VENOUS STANDARD HCO3 8.8 MEQ/L; VENOUS TOTAL CO2 7.3 MEQ/L (24.0-28.0)
[2021-09-09] MEDS ORDERED: ERGO500029 PO (19:04)
[2021-09-09] MEDS ORDERED: DULO60CA35 PO (19:04)
[2021-09-09] MEDS ORDERED: XTAM18CA PO (19:04)
[2021-09-09] MEDS ORDERED: PREG150C PO (19:04)
[2021-09-09] MEDS ORDERED: ATOR80TA59 PO (19:04)
[2021-09-09] MEDS ORDERED: METF-838 PO (19:04)
[2021-09-09] MEDS ORDERED: VASC1CAP2 PO (19:05)
[2021-09-09] MEDS ORDERED: HOME MED LIST COMPLETE! XX SCH (19:10)
[2021-09-09] MEDS ORDERED: PREGABALIN 75 MG CAP(LYRICA) PO ONE (20:05)
[2021-09-09] MEDS ORDERED: PERCOCET 5MG/325MG TAB PO PRN (20:05)
[2021-09-09] MEDS ORDERED: CYCLOBENZAPRINE 10MG TABLET PO PRN (20:15)
[2021-09-09] MEDS ORDERED: HYDROMORPHONE HCL 0.5 MG/ 0.5 ML SYRINGE (J1170 PER 1) IV PRN (20:20)
[2021-09-09] MEDS ORDERED: PANTOPRAZOLE 40MG VIAL IV STA (20:25)
[2021-09-09] MEDS ORDERED: SODIUM BICARBONATE 8.4% INJ 50 ML SYRINGE IV ONE (20:30)
[2021-09-09] MEDS ORDERED: NS 1,000 ML IV SCH (21:30)
[2021-09-09 23:47] LABS: CREATININE FOR GFR 1.62 MG/DL (0.70-1.30); GLOMERULAR FILTRATION RATE 47.5 (>56); PHOSPHORUS LEVEL 1.7 MG/DL (2.5-4.9); POTASSIUM SERUM 4.2 MEQ/L (3.5-5.1)
[2021-09-09] MEDS: INSULIN REGULAR IN 0.9 % NACL 100 UNIT in IV 1 EA IV SCH ×2 (23:48)
[2021-09-10] VITALS (19 sets, daily range): BP systolic 127–186; BP diastolic 60–88
[2021-09-10] MEDS: oxyCODONE 15 MG CR TAB PO SCH ×2 (00:32→08:20)
[2021-09-10] MEDS ORDERED: hydrALAZINE 20MG/ML 1ML VIAL (J0360 PER 20MG) IV ONE (00:45)
[2021-09-10] MEDS ORDERED: KCL 20MEQ IN 0.45NS 1000ML 1,000 ML IV SCH (00:45)
[2021-09-10] MEDS ORDERED: POTASSIUM PHOSPHATE INJ 30 MMOL in D5W 500 ML IV ONE ×2 (01:00→06:30)
[2021-09-10] MEDS: KCL 20MEQ IN D5/0.45NS 1000ML 1,000 ML IV SCH ×2 (02:08→08:31)
[2021-09-10 02:12] LABS: CALCIUM LEVEL 8.5 MG/DL (8.5-10.1); CREATININE FOR GFR 1.43 MG/DL (0.70-1.30); GLOMERULAR FILTRATION RATE 54.9 (>56); MAGNESIUM LEVEL 1.9 MG/DL (1.8-2.4); PHOSPHORUS LEVEL 1.2 MG/DL (2.5-4.9)
[2021-09-10] MEDS: INSULIN IV RATE CHANGE DOCUMENTATION ML/HR XX SCH ×4 (05:09→09:55)
[2021-09-10 05:20] LABS: BASO # 0.1 10^3/uL (0.0-0.2); BASO % 0.3 % (0.0-1.0); HEMATOCRIT 39.9 % (42.0-52.0); LYMPH # 1.2 10^3/uL (1.5-5.0); LYMPH % 5.9 % (24.0-44.0); MEAN CORPUSCULAR HEMOGLOBIN 32.2 pg (27.0-33.0); MEAN CORPUSCULAR HGB CONC 36.6 g/dl (32.0-36.5); MEAN CORPUSCULAR VOLUME 88.1 fl (80.0-96.0); MONO % 13.1 % (2.0-8.0); NEUTROPHILS # 16.2 10^3/uL (1.5-8.5); NEUTROPHILS % 79.6 % (36.0-66.0); RED BLOOD COUNT 4.53 10^6/uL (4.30-6.10); WHITE BLOOD COUNT 20.4 10^3/uL (4.0-10.0)
[2021-09-10] MEDS: INSULIN REGULAR IN 0.9 % NACL 100 UNIT in IV 1 EA IV SCH ×2 (05:28)
[2021-09-10 05:42] LABS: MONO # 2.7 10^3/uL (0.0-0.8)
[2021-09-10 05:44] LABS: ALBUMIN 3.3 GM/DL (3.2-5.2); ALT/SGPT 20 U/L (12-78); BILIRUBIN,TOTAL 0.4 MG/DL (0.2-1.0); BLOOD UREA NITROGEN 21 MG/DL (7-18); CALCIUM LEVEL 8.4 MG/DL (8.5-10.1); CARBON DIOXIDE LEVEL 18 MEQ/L (21-32); CHLORIDE LEVEL 110 MEQ/L (98-107); CREATININE FOR GFR 1.26 MG/DL (0.70-1.30); GLOMERULAR FILTRATION RATE > 60.0 (>56); GLUCOSE, FASTING 258 MG/DL (70-100); LIPASE 1517 U/L (73-393); MAGNESIUM LEVEL 1.8 MG/DL (1.8-2.4); PHOSPHORUS LEVEL 1.9 MG/DL (2.5-4.9); POTASSIUM SERUM 4.2 MEQ/L (3.5-5.1); SODIUM LEVEL 139 MEQ/L (136-145); TOTAL PROTEIN 6.6 GM/DL (6.4-8.2)
[2021-09-10 05:46] LABS: HEMOGLOBIN 14.6 g/dl (13.5-17.5); PLATELET COUNT, AUTOMATED 305 10^3/uL (150-450)
[2021-09-10] MEDS ORDERED: PREGABALIN 100 MG CAP (LYRICA) PO SCH (09:00)
[2021-09-10] MEDS ORDERED: LEVEMIR (INSULIN DETEMIR) 1 UNITS/0.01ML SC SCH (09:00)
[2021-09-10] MEDS ORDERED: PANTOPRAZOLE 40MG VIAL IV SCH (09:00)
[2021-09-10 09:10] LABS: ABG BASE EXCESS -6.3 (-2.0-2.0); ABG HCO3 17.9 MEQ/L (22.0-26.0); ABG O2 SATURATION 99.1 % (95.0-99.0); ABG PARTIAL PRESSURE CO2 31.8 mmHg (35.0-45.0); ABG PARTIAL PRESSURE O2 202.1 mmHg (75.0-100.0); ABG STANDARD HCO3 19.4 MEQ/L (22.0-26.0); ABG TOTAL CO2 18.9 MEQ/L (22.0-29.0); ABG pH (ARTERIAL) 7.368 UNITS (7.350-7.450)
[2021-09-10] MEDS ORDERED: MAGNESIUM OXIDE 400MG TAB (MAG-OX) PO ONE (10:00)
[2021-09-10 10:28] LABS: MAGNESIUM LEVEL 1.8 MG/DL (1.8-2.4); PHOSPHORUS LEVEL 2.6 MG/DL (2.5-4.9)
[2021-09-10 10:37] LABS: BLOOD UREA NITROGEN 16 MG/DL (7-18); CALCIUM LEVEL 8.4 MG/DL (8.5-10.1); CARBON DIOXIDE LEVEL 18 MEQ/L (21-32); CHLORIDE LEVEL 110 MEQ/L (98-107); CREATININE FOR GFR 1.11 MG/DL (0.70-1.30); GLOMERULAR FILTRATION RATE > 60.0 (>56); GLUCOSE, FASTING 193 MG/DL (70-100); POTASSIUM SERUM 4.1 MEQ/L (3.5-5.1); SODIUM LEVEL 136 MEQ/L (136-145)
[2021-09-10] MEDS ORDERED: GLUCAGON INJ 1MG VIAL SC PRN (11:00)
[2021-09-10] MEDS ORDERED: GLUCOSE 4GM CHEW TABLET PO PRN (11:00)
[2021-09-10] MEDS ORDERED: HumaLOG INSULIN (NovoLOG) PER UNIT SC SCH ×2 (12:00→21:00)
[2021-09-10 13:48] LABS: BLOOD UREA NITROGEN 14 MG/DL (7-18); CALCIUM LEVEL 8.3 MG/DL (8.5-10.1); CARBON DIOXIDE LEVEL 21 MEQ/L (21-32); CHLORIDE LEVEL 108 MEQ/L (98-107); CREATININE FOR GFR 0.92 MG/DL (0.70-1.30); GLOMERULAR FILTRATION RATE > 60.0 (>56); GLUCOSE, FASTING 241 MG/DL (70-100); POTASSIUM SERUM 4.1 MEQ/L (3.5-5.1); SODIUM LEVEL 137 MEQ/L (136-145)
[2021-09-10] MEDS ORDERED: PANT40TA29 PO (14:14)
[2021-09-10] MEDS ORDERED: TRES1INJ SC (14:14)
[2021-09-10] MEDS ORDERED: SUCR1TA PO (14:14)
[2021-09-10 14:43] LABS: APPEARANCE, URINE CLEAR (CLEAR); BACTERIA, URINE AUTO NEGATIVE (NEGATIVE); BILIRUBIN, URINE AUTO NEGATIVE (NEGATIVE); BLOOD, URINE BLOOD NEGATIVE (NEGATIVE); COLOR, URINE STRAW (YELLOW); GLUCOSE, URINE (UA) AUTO 3+ mg/dL (NEGATIVE); KETONE, URINE AUTO 1+ mg/dL (NEGATIVE); LEUKOCYTE ESTERASE, URINE AUTO NEGATIVE (NEGATIVE); MUCUS, URINE SMALL (NEGATIVE); NITRITE, URINE AUTO NEGATIVE (NEGATIVE); PROTEIN, URINE AUTO NEGATIVE (NEGATIVE); RBC, URINE AUTO 0 /HPF (0-3); SPECIFIC GRAVITY URINE AUTO 1.012 (1.002-1.035); SQUAMOUS EPITHELIAL CELL UR AU 0 /HPF (0-6); UROBILINOGEN, URINE AUTO 0.2 mg/dL (0.0-2.0); WBC, URINE AUTO 2 /HPF (0-3)
[2021-09-10] MEDS ORDERED: AMLO1TAB25 PO (14:57)
== END 2021-09-10 16:00 | disposition home or self-care (01) | DRG 420 ==
LOC: M ED 14:33 → M ED INP 21:55 → M ICU 09-10 00:50
PROVIDERS: ADMIT Internal Medicine; ATTEND Family Medicine
DX: E11.10 Type 2 diabetes mellitus with ketoacidosis without coma (principal); N17.9 Acute kidney failure, unspecified; K92.0 Hematemesis; M50.00 Cervical disc disorder with myelopathy, unspecified cervical region; K21.9 Gastro-esophageal reflux disease without esophagitis; Z79.4 Long term (current) use of insulin; Z79.899 Other long term (current) drug therapy; E11.51 Type 2 diabetes mellitus with diabetic peripheral angiopathy without gangrene

== ENCOUNTER → 2022-02-09 | Outpatient (CLI) | payer OTHER ==
[~2022-02-09] MED LIST changes: +AMLO1TAB25 PO; +ATOR80TA59 PO; +DULO60CA35 PO; +ERGO500029 PO; +METF-838 PO; +PANT40TA29 PO; +PREG150C PO; +SUCR1TA PO; +VASC1CAP2 PO; +XTAM18CA PO
== END ==
LOC: M PAIN 13:30
PROVIDERS: ATTEND Nurse Practitioner Family
DX: M96.1 Postlaminectomy syndrome, not elsewhere classified (principal); E11.9 Type 2 diabetes mellitus without complications; Z87.891 Personal history of nicotine dependence; Z79.84 Long term (current) use of oral hypoglycemic drugs; Z79.891 Long term (current) use of opiate analgesic; Z79.899 Other long term (current) drug therapy

== ENCOUNTER 2022-03-22 10:34 | Emergency (ER) | payer OTHER ==
[~2022-03-22] VITALS: Ht 177.8 cm; Wt 105.5 kg
[2022-03-22] MEDS ORDERED: diazePAM 10MG/2ML SYRINGE (J3360 PER 5MG) IV ONE ×2 (12:25→14:00)
[2022-03-22] MEDS ORDERED: LIDOCAINE 5% (LIDODERM) PATCH TD ONE (12:25)
[2022-03-22] MEDS ORDERED: KETOROLAC 30 MG/ML 1ML VIAL IV ONE (12:25)
[2022-03-22] MEDS ORDERED: methylPREDNISolone 125MG 2ML VIAL IV ONE (14:00)
[2022-03-22] MEDS ORDERED: PERC5TAB12 PO (14:19)
[2022-03-22] MEDS ORDERED: PRED20TA PO (14:19)
[2022-03-22] MEDS ORDERED: METH-1165 PO (14:19)
[2022-03-22 14:31] VITALS: BP 127/83
== END 2022-03-22 15:01 | disposition home or self-care (01) ==
LOC: M ED 10:34
DX: M54.9 Dorsalgia, unspecified (principal); R20.2 Paresthesia of skin; E11.9 Type 2 diabetes mellitus without complications; I10 Essential (primary) hypertension; E78.5 Hyperlipidemia, unspecified; K21.9 Gastro-esophageal reflux disease without esophagitis; Z79.4 Long term (current) use of insulin; Z79.899 Other long term (current) drug therapy
CPT/HCPCS: 72052; 72072; 96374; 96375; 99284; J1885; J2930; J3360

== ENCOUNTER → 2022-05-10 | Outpatient (CLI) | payer BC, OTHER ==
[~2022-05-10] MED LIST changes: +METH-1165 PO; +PERC5TAB12 PO; +PRED20TA PO; +PROHANCE 279.3MG/ML 15ML VIAL As Ordered ONE; +PROHANCE 279.3MG/ML 5ML VIAL As Ordered ONE
== END ==
LOC: M RAD 08:50
PROVIDERS: ATTEND Nurse Practitioner Family
DX: M96.1 Postlaminectomy syndrome, not elsewhere classified (principal)
CPT/HCPCS: 72158; A9576

== ENCOUNTER → 2022-05-30 | Outpatient (CLI) | payer BC, OTHER ==
[~2022-05-30] MED LIST changes: -PROHANCE 279.3MG/ML 15ML VIAL As Ordered ONE; -PROHANCE 279.3MG/ML 5ML VIAL As Ordered ONE
== END ==
LOC: M PAIN 08:45
PROVIDERS: ATTEND Nurse Practitioner Family
DX: M96.1 Postlaminectomy syndrome, not elsewhere classified (principal); G89.29 Other chronic pain; E11.9 Type 2 diabetes mellitus without complications; Z87.891 Personal history of nicotine dependence; Z79.4 Long term (current) use of insulin; Z79.84 Long term (current) use of oral hypoglycemic drugs; Z79.891 Long term (current) use of opiate analgesic; Z79.899 Other long term (current) drug therapy

== ENCOUNTER → 2022-05-31 | Outpatient (CLI) | payer BC, OTHER | LOC: M PLAIMG 08:34 | PROVIDERS: ATTEND Orthopaedic Surgery | DX: M47.812 Spondylosis without myelopathy or radiculopathy, cervical region (principal) ==

== ENCOUNTER → 2022-06-26 | Outpatient (CLI) | payer BC, OTHER | LOC: M LABSMTC 11:02 | PROVIDERS: ATTEND Anesthesiology | DX: Z01.812 Encounter for preprocedural laboratory examination (principal) ==

== ENCOUNTER → 2022-06-29 | Outpatient (CLI) | payer BC, OTHER ==
[~2022-06-29] MED LIST changes: +ISOVUE-M 300 61% 15ML VIAL As Ordered ONE; +LIDOCAINE 1% SDV 30ML VIAL As Ordered ONE; +diazePAM 5MG TABLET As Ordered ONE; +methylPREDNISolone SUSP 40MG/ML 1ML VIAL (DEPO MEDROL) As Ordered ONE; +oxyCODONE 5MG TAB As Ordered ONE
== END ==
LOC: M PAIN 07:45
PROVIDERS: ATTEND Anesthesiology
DX: M51.16 Intervertebral disc disorders with radiculopathy, lumbar region (principal); G89.29 Other chronic pain; E11.9 Type 2 diabetes mellitus without complications; Z87.891 Personal history of nicotine dependence; Z79.4 Long term (current) use of insulin; Z79.84 Long term (current) use of oral hypoglycemic drugs; Z79.899 Other long term (current) drug therapy
CPT/HCPCS: 62323; J1030; Q9967

== ENCOUNTER → 2022-08-01 | Outpatient (CLI) | payer BC, OTHER ==
[~2022-08-01] MED LIST changes: -ISOVUE-M 300 61% 15ML VIAL As Ordered ONE; -LIDOCAINE 1% SDV 30ML VIAL As Ordered ONE; -diazePAM 5MG TABLET As Ordered ONE; -methylPREDNISolone SUSP 40MG/ML 1ML VIAL (DEPO MEDROL) As Ordered ONE; -oxyCODONE 5MG TAB As Ordered ONE
== END ==
LOC: M PAIN 08:45
PROVIDERS: ATTEND Nurse Practitioner Family
DX: M51.16 Intervertebral disc disorders with radiculopathy, lumbar region (principal); G89.29 Other chronic pain; E11.9 Type 2 diabetes mellitus without complications; Z87.891 Personal history of nicotine dependence; Z79.4 Long term (current) use of insulin; Z79.84 Long term (current) use of oral hypoglycemic drugs; Z79.85 Long-term (current) use of injectable non-insulin antidiabetic drugs; Z79.891 Long term (current) use of opiate analgesic; Z79.899 Other long term (current) drug therapy

== ENCOUNTER → 2022-09-12 | Outpatient (CLI) | payer BC, OTHER ==
[~2022-09-12] MED LIST changes: +BUPIVACAINE HCL 0.25% 30ML VIAL As Ordered ONE; +ISOVUE-M 300 61% 15ML VIAL As Ordered ONE; +LIDOCAINE 1% SDV 30ML VIAL As Ordered ONE; +PERCOCET 5MG/325MG TAB As Ordered ONE; +diazePAM 5MG TABLET As Ordered ONE
== END ==
LOC: M PAIN 12:00
PROVIDERS: ATTEND Anesthesiology
DX: M51.16 Intervertebral disc disorders with radiculopathy, lumbar region (principal); G89.29 Other chronic pain; E11.9 Type 2 diabetes mellitus without complications; Z87.891 Personal history of nicotine dependence; Z79.4 Long term (current) use of insulin; Z79.84 Long term (current) use of oral hypoglycemic drugs; Z79.891 Long term (current) use of opiate analgesic; Z79.899 Other long term (current) drug therapy
CPT/HCPCS: 64483; 64484; J1100; Q9967; S0020

== ENCOUNTER → 2022-10-24 | Outpatient (CLI) | payer BC, OTHER ==
[~2022-10-24] MED LIST changes: -BUPIVACAINE HCL 0.25% 30ML VIAL As Ordered ONE; -ISOVUE-M 300 61% 15ML VIAL As Ordered ONE; -LIDOCAINE 1% SDV 30ML VIAL As Ordered ONE; -PERCOCET 5MG/325MG TAB As Ordered ONE; -diazePAM 5MG TABLET As Ordered ONE
== END ==
LOC: M RAD 11:10
PROVIDERS: ATTEND Nurse Practitioner Family
DX: M46.1 Sacroiliitis, not elsewhere classified (principal)

== ENCOUNTER → 2022-10-24 | Outpatient (CLI) | payer BC, OTHER | LOC: M PAIN 09:45 | PROVIDERS: ATTEND Nurse Practitioner Family | DX: M46.1 Sacroiliitis, not elsewhere classified (principal); G89.29 Other chronic pain; E11.9 Type 2 diabetes mellitus without complications; Z87.891 Personal history of nicotine dependence; Z79.4 Long term (current) use of insulin; Z79.84 Long term (current) use of oral hypoglycemic drugs; Z79.891 Long term (current) use of opiate analgesic; Z79.899 Other long term (current) drug therapy ==

== ENCOUNTER → 2022-11-14 | Outpatient (CLI) | payer BC, OTHER ==
[~2022-11-14] MED LIST changes: -ROPI1TAB3 PO; +ROPI1TAB73 PO
== END ==
LOC: M PLAIMG 06:34
PROVIDERS: ATTEND Nurse Practitioner Family
DX: M46.1 Sacroiliitis, not elsewhere classified (principal); M51.36 Other intervertebral disc degeneration, lumbar region

== ENCOUNTER 2022-11-21 11:48 | Emergency (ER) | payer BC, OTHER ==
[~2022-11-21] VITALS: Ht 177.8 cm; Wt 101.5 kg
[2022-11-21 11:48] VITALS: TEMP 97
[2022-11-21] MEDS ORDERED: NS 1,000 ML IV ONE (15:30)
[2022-11-21 16:15] LABS: BASO # 0.1 10^3/uL (0.0-0.2); BASO % 0.7 % (0.0-1.0); EOS # 0.3 10^3/uL (0.0-0.5); HEMOGLOBIN 15.6 g/dl (13.5-17.5); LYMPH # 2.8 10^3/uL (1.5-5.0); LYMPH % 28.4 % (24.0-44.0); MEAN CORPUSCULAR HEMOGLOBIN 31.3 pg (27.0-33.0); MEAN CORPUSCULAR HGB CONC 33.9 g/dl (32.0-36.5); MEAN CORPUSCULAR VOLUME 92.4 fl (80.0-96.0); MONO # 0.9 10^3/uL (0.0-0.8); MONO % 8.9 % (2.0-8.0); NEUTROPHILS # 5.7 10^3/uL (1.5-8.5); NEUTROPHILS % 58.3 % (36.0-66.0); PLATELET COUNT, AUTOMATED 353 10^3/uL (150-450); RED BLOOD COUNT 4.98 10^6/uL (4.30-6.10); WHITE BLOOD COUNT 9.8 10^3/uL (4.0-10.0)
[2022-11-21 16:27] LABS: INR 0.91; PROTHROMBIN TIME 12.5 SECONDS (12.5-14.5)
[2022-11-21 16:32] LABS: LIPASE 30 U/L (12-53); OSMOLALITY SERUM 291 MOSM/KG (275-295)
[2022-11-21 16:34] LABS: ALBUMIN 4.3 G/DL (3.2-5.2); ALKALINE PHOSPHATASE 74 U/L (46-116); ALT/SGPT 15 U/L (7.0-40); AST/SGOT < 8 U/L (<34); BILIRUBIN,DIRECT 0.1 MG/DL (<0.4); BILIRUBIN,TOTAL 0.4 MG/DL (0.3-1.2); CK-MB VALUE MASS < 1.0 NG/ML (<3.6); CPK CREATINE PHOSPHOKINASE 47 U/L (46-171); MAGNESIUM LEVEL 1.7 MG/DL (1.8-2.4); MB/CK RELATIVE INDEX 2.12 (< OR =4); TOTAL PROTEIN 7.4 G/DL (5.7-8.2)
[2022-11-21 16:35] LABS: ACETONE/KETONE 0.41 MMOL/L (0.02-0.27)
[2022-11-21 16:38] LABS: FREE T4 1.31 NG/DL (0.89-1.76); THYROID STIMULATING HORMONE 1.655 uIU/ML (0.55-4.78)
[2022-11-21 19:44] VITALS: O2SAT 98
[2022-11-21 19:45] VITALS: BP 142/86
== END 2022-11-21 20:00 | disposition home or self-care (01) ==
LOC: M ED 11:48
DX: R42 Dizziness and giddiness (principal); I95.9 Hypotension, unspecified; E11.9 Type 2 diabetes mellitus without complications; I10 Essential (primary) hypertension; K21.9 Gastro-esophageal reflux disease without esophagitis; M54.50 Low back pain, unspecified; C61 Malignant neoplasm of prostate; Z79.4 Long term (current) use of insulin; Z79.52 Long term (current) use of systemic steroids; Z79.899 Other long term (current) drug therapy

== ENCOUNTER → 2022-11-21 | Outpatient (CLI) | payer BC, OTHER | LOC: M PAIN 10:00 | PROVIDERS: ATTEND Nurse Practitioner Family | DX: M46.1 Sacroiliitis, not elsewhere classified (principal); G89.29 Other chronic pain; E11.9 Type 2 diabetes mellitus without complications; Z87.891 Personal history of nicotine dependence; Z79.4 Long term (current) use of insulin; Z79.84 Long term (current) use of oral hypoglycemic drugs; Z79.85 Long-term (current) use of injectable non-insulin antidiabetic drugs; Z79.899 Other long term (current) drug therapy ==

== ENCOUNTER → 2022-12-22 | Outpatient (CLI) | payer BC, OTHER | LOC: M PAIN 16:30 | PROVIDERS: ATTEND Nurse Practitioner Family | DX: M46.1 Sacroiliitis, not elsewhere classified (principal); G89.29 Other chronic pain; E11.9 Type 2 diabetes mellitus without complications; Z87.891 Personal history of nicotine dependence; Z79.4 Long term (current) use of insulin; Z79.84 Long term (current) use of oral hypoglycemic drugs; Z79.891 Long term (current) use of opiate analgesic; Z79.899 Other long term (current) drug therapy ==

== ENCOUNTER → 2023-01-30 | Outpatient (CLI) | payer BC, OTHER ==
[~2023-01-30] MED LIST changes: +ISOVUE-M 300 61% 15ML VIAL As Ordered ONE; +LIDOCAINE 1% SDV 30ML VIAL As Ordered ONE; -PREG150C PO; +PREG150C2 PO; +TRIAMCINOLONE ACETONIDE SUSP 40MG/ML 1ML VIAL As Ordered ONE; +diazePAM 5MG TABLET As Ordered ONE; +oxyCODONE 5MG TAB As Ordered ONE
== END ==
LOC: M PAIN 14:15
PROVIDERS: ATTEND Anesthesiology
DX: M46.1 Sacroiliitis, not elsewhere classified (principal); G89.29 Other chronic pain; E11.9 Type 2 diabetes mellitus without complications; Z87.891 Personal history of nicotine dependence; Z79.4 Long term (current) use of insulin; Z79.84 Long term (current) use of oral hypoglycemic drugs; Z79.891 Long term (current) use of opiate analgesic; Z79.899 Other long term (current) drug therapy
CPT/HCPCS: G0260; J0665; J3301; Q9967

== ENCOUNTER → 2023-08-29 | Outpatient (REF) | payer BC, OTHER ==
[~2023-08-29] MED LIST changes: -ISOVUE-M 300 61% 15ML VIAL As Ordered ONE; -LIDOCAINE 1% SDV 30ML VIAL As Ordered ONE; -TRIAMCINOLONE ACETONIDE SUSP 40MG/ML 1ML VIAL As Ordered ONE; -diazePAM 5MG TABLET As Ordered ONE; -oxyCODONE 5MG TAB As Ordered ONE
== END ==
LOC: M LAB REF 16:34
PROVIDERS: ATTEND Nurse Practitioner Adult Health
DX: Z11.59 Encounter for screening for other viral diseases (principal)

== ENCOUNTER → 2024-02-20 | Outpatient (REF) | payer BC, OTHER ==
[~2024-02-20] MED LIST changes: +ONDA-282 PO; -ONDA4TAB6 PO
[2024-02-22 09:07] LABS: LDL DIRECT 133 mg/dL (<100)
== END ==
LOC: M LAB REF 17:26
PROVIDERS: ATTEND Nurse Practitioner Adult Health
DX: E78.00 Pure hypercholesterolemia, unspecified (principal)